=== PATIENT | female | born 1960 | race Caucasian/White ===

== ENCOUNTER 2022-07-21 05:09 | Observation (INO) ==
--- NOTE | 2022-06-29 15:58 | PAT Medication Instructions ---
Medication Instructions Date of Service June 29, 2022 Home Medications acetaminophen 500 mg tablet 1,000 mg PO Q6H PRN Pain aspirin 81 mg capsule 81 mg PO QAM atorvastatin 20 mg tablet 20 mg PO HS cholecalciferol (vitamin D3) 25 mcg (1,000 unit) tablet (Vitamin D3) 1,000 unit PO QAM duloxetine 30 mg capsule,delayed release (Cymbalta) 30 mg PO QAM levothyroxine 100 mcg tablet 100 mcg PO QAM metformin 1,000 mg tablet 1,000 mg PO BID metoprolol succinate 25 mg tablet,extended release 24 hr 12.5 mg PO QAM semaglutide 0.25 mg or 0.5 mg (2 mg/3 mL) subcutaneous pen injector (Ozempic) 0.5 mg subcut WK valsartan 40 mg tablet 40 mg PO BID Continue as directed semaglutide 0.25 mg or 0.5 mg (2 mg/3 mL) subcutaneous pen injector (Ozempic) 0.5 mg subcut WK DO NOT take the morning of surgery cholecalciferol (vitamin D3) 25 mcg (1,000 unit) tablet (Vitamin D3) 1,000 unit PO QAM metformin 1,000 mg tablet 1,000 mg PO BID valsartan 40 mg tablet 40 mg PO BID Take morning of surgery With a small sip of water, OTHERWISE NOTHING TO EAT OR DRINK AFTER MIDNIGHT: acetaminophen 500 mg tablet 1,000 mg PO Q6H PRN Pain (if needed) aspirin 81 mg capsule 81 mg PO QAM (continue as normal unless told otherwise by surgeon) duloxetine 30 mg capsule,delayed release (Cymbalta) 30 mg PO QAM levothyroxine 100 mcg tablet 100 mcg PO QAM metoprolol succinate 25 mg tablet,extended release 24 hr 12.5 mg PO QAM Take evening before surgery acetaminophen 500 mg tablet 1,000 mg PO Q6H PRN Pain (if needed) atorvastatin 20 mg tablet 20 mg PO HS metformin 1,000 mg tablet 1,000 mg PO BID valsartan 40 mg tablet 40 mg PO BID Other Notes If you have any questions please call us at [phone] or [phone] or [phone] or [phone]
--- NOTE | 2022-07-05 12:34 | Anesthesiology Consultation ---
Date of Service July 05, 2022 Assessment & Plan (1) Encounter for pre-operative examination: - COVID screening: Per assessment on 07/05: No known COVID-19 positive contacts or current COVID-19 related symptoms. Travel screen negative. Patient vaccinated. At surgeon discretion if preop Covid testing being done. - Check BSG AM DOS - Outpatient joint assessment: Pt currently scheduled for inpatient pathway. If surgeon requests review for outpatient joint pathway, patient is acceptable candidate for outpatient joint program from anesthesia standpoint. Chart Review Chart Review: Acceptable Risk for Surgery and Patient seen in Pre Admission Testing Teaching & Discussion Pre-Anesthesia Teaching/Discussion Notes: Instructed NPO after midnight before surgery,except medications with 15 cc of water. Medication instructions provided according to the PAT guidelines. History Surgery Operation Date: 07/21/22 10:50 Proposed Procedures p Right Total Hip Arthroplasty - Jda Hinton MD Height/Weight Height: 5 ft 2 in Weight: 73.4 kg Allergies Allergy/AdvReac Type Severity Reaction Status Date / Time vancomycin Allergy Mild redness to Verified 06/29/22 12:48 face/neck, itchy Sulfa (Sulfonamide AdvReac Intermediate "makes me Verified 06/29/22 12:48 Antibiotics) hyper" Cephalosporins AdvReac Mild itchy Verified 06/29/22 12:48 lisinopril AdvReac Mild Cough Verified 06/29/22 12:48 Medications Home Medications Medication Instructions Recorded Confirmed Last Taken acetaminophen 500 mg tablet 1,000 mg PO Q6H PRN Pain 06/29/22 06/29/22 Unknown aspirin 81 mg capsule 81 mg PO QAM 06/29/22 06/29/22 Unknown atorvastatin 20 mg tablet 20 mg PO HS 06/29/22 06/29/22 Unknown cholecalciferol (vitamin D3) 25 1,000 unit PO QAM 06/29/22 06/29/22 Unknown mcg (1,000 unit) tablet (Vitamin D3) duloxetine 30 mg capsule,delayed 30 mg PO QAM 06/29/22 06/29/22 Unknown release (Cymbalta) levothyroxine 100 mcg tablet 100 mcg PO QAM 06/29/22 06/29/22 Unknown metformin 1,000 mg tablet 1,000 mg PO BID 06/29/22 06/29/22 Unknown metoprolol succinate 25 mg 12.5 mg PO QAM 06/29/22 06/29/22 Unknown tablet,extended release 24 hr semaglutide 0.25 mg or 0.5 mg (2 0.5 mg subcut WK 06/29/22 06/29/22 Unknown mg/3 mL) subcutaneous pen injector ([id number]) valsartan 40 mg tablet 40 mg PO BID 06/29/22 06/29/22 Unknown Wheeled Walker #1 ea 07/05/22 07/05/22 Unknown Past Medical History Medical History Bilateral hip joint arthritis Diabetes mellitus, type 2 Fatty liver Fibromyalgia History of prolonged Q-T interval on ECG Noted on remote EKG/not noted on more recent EKGs. S/P unremarkable 14 day ca rdiac monitor 04/2022. No current/recent issues. Hyperlipidemia Hypertension Hypothyroidism Osteoarthritis Exercise / Class Metabolic Activity II 4-5 Yardwork/Stairs/Walk up hill (one FS (no CP, no SOB)) Past Family History Family History Other No family history of adverse response to anesthesia Past Surgical History Surgical History History of bilateral breast reduction surgery History of bilateral cataract extraction History of bilateral tubal ligation History of carpal tunnel surgery of right wrist History of colonoscopy History of decompression of ulnar nerve right History of dilatation and curettage History of endometrial ablation History of toe surgery bone spur removal off right great toe History of wisdom tooth extraction Past Anesthesia History No Hx of Anesthesia Complications and No Family Hx of Anesthesia Complications History of PONV No Hx of PONV and No Hx of Motion Sickness Social History Smoking Status: Never smoker Do You Dip or Chew Tobacco: No Hx Alcohol Use: No Hx Substance Use: No substance use type: does not use Review of Systems Patient denies chest pain, shortness of breath, dyspnea on exertion, fever, chills, cough, wheezing, palpitations. Physical Exam Vital Signs VITALS BP 111/67 P 96 TEMP 98.9 SP02 95%RA RESP 16 PHYSICAL Full cervical extension range of motion. Full TMJ range of motion. TMD 3.5 finger breaths Mallampati Score 3 Dentition: several missing (molars) Lungs: clear throughout to auscultation Cardiac: regular rate and rhythm, no murmurs noted Spine: normal Carotid arteries: negative bruit Extremities: no edema Lab Results Anesthesia Preop Results Results Anesthesia Widget: WBC 7.79 K/ul (4.8-10.8) 07/05/22 Hgb 14.6 g/dl (12.0-16.0) 07/05/22 Hct 42.2 % (37.0-47.0) 07/05/22 Plt 185 K/uL (130-400) 07/05/22 PT 11.5 Seconds (9.0-12.0) 07/05/22 PTT 27.8 Seconds (21.0-31.0) 07/05/22 INR 1.1 (0.9-1.1) 07/05/22 Blood Type O Positive 07/05/22 Antibody Screen NEGATIVE 07/05/22 Testing Laboratory Results 06/02/22 SODIUM 140 POTASSIUM 4.1 CHLORIDE 100 CO2 28 BUN 9 CREATININE 0.5 GLUCOSE 119 HGBA1C 7.0% TSH 1.39 Electrocardiogram Date: 07/05/22 NSR at 87bpm. Chest X-Ray Date: 07/05/22 Findings: + NAD Other Testing 14 day event host (04/21/22) CONCLUSIONS: 1. Patient had a min HR of 56 bpm, max HR of 151 bpm, and avg HR of 89 bpm. Predominant underlying rhythm was Sinus Rhythm. 2. Isolated SVEs were rare (<1.0%), and no SVE Couplets or SVE Triplets were present. Isolated VEs were rare (<1.0%), VE Couplets were rare (<1.0%), and no VE Triplets were present. COVID-19 Risk Screen Screening Information COVID-19 Screen Date: 07/05/22 Exposure 21 Days Family/Household +COVID Last 21 Days: No Exposure 10 Days Any COVID Exposure Last 10 Days: No Symptoms Last 10 Days Experienced COVID Sx Last 10 Days: No + COVID 0-90 Days COVID + in Last 0-90 Days: No
[2022-07-21] MEDS ORDERED: METOCLOPRAMIDE HCL 10 MG TABLET PO SCH (06:00)
[2022-07-21] MEDS ORDERED: CeleBREX 200 MG CAP PO SCH (06:00)
[2022-07-21] MEDS ORDERED: LR 60ML/HR IV SCH (06:00)
[2022-07-21] MEDS ORDERED: TRANEXAMIC ACID 1,000 MG **IV Pre-op IV SCH (06:00)
[2022-07-21] MEDS ORDERED: LR 500ML BOLUS, THEN 15ML/HR IV SCH (06:00)
[2022-07-21] MEDS ORDERED: ACETAMINOPHEN 500 MG TAB PO SCH (06:00)
[2022-07-21] MEDS ORDERED: ceFAZolin 2000MG 2,000 MG/15 ML SYR IV SCH (06:00)
[2022-07-21] MEDS ORDERED: FAMOTIDINE 20 MG TAB PO SCH (06:00)
[2022-07-21] MEDS ORDERED: Scopolamine 1 MG TDSY TD SCH (06:00)
[2022-07-21] MEDS ORDERED: BUPIVACAINE 0.5 % 5 MG/1 ML PF 10ML VIAL ONE (06:26)
[2022-07-21] MEDS ORDERED: ONDANSETRON INJ 2 MG/ML 2 ML VIAL IV PRN (06:41)
[2022-07-21] MEDS ORDERED: ATROPINE SULFATE 0.1 MG/ML 10ML SYR IV PRN (06:41)
[2022-07-21] MEDS ORDERED: ePHEDrine sulfate 50 MG/ML AMP IV PRN ×2 (06:41→07:57)
[2022-07-21] MEDS ORDERED: fentaNYL citrate PF 100 MCG/2 ML VIAL IV PRN (06:41)
[2022-07-21] MEDS ORDERED: MIDAZOLAM HCL 1 MG/ML 2ML VIAL ONE ×2 (06:42→07:02)
[2022-07-21] MEDS ORDERED: fentaNYL citrate PF 100 MCG/2 ML VIAL ONE (06:43)
[2022-07-21] MEDS ORDERED: MoRPHine SULFATE PF 1 MG/ML 10 ML AMP/VIAL ONE (06:44)
--- NOTE | 2022-07-21 06:49 | History & Physical Bridge Note ---
Date of Service July 21, 2022 History & Physical Bridge Note I have examined the patient, reviewed the History & Physical and in the interval since the performance of the History & Physical I have noted the following changes of clinical significance: no changes noted
[2022-07-21] MEDS ORDERED: ceFAZolin 2,000 MG/15 ML IV PUSH IV ONE (06:50)
[2022-07-21] MEDS ORDERED: PROPOFOL IV EMULSION 10 MG/ML 20 ML VIAL IV ONE (06:51)
[2022-07-21] MEDS ORDERED: BUPIVACAINE/EPINEPHRINE 0.5% MPF 1:200,000 30 ML VIAL ONE (06:55)
[2022-07-21] MEDS ORDERED: Nursing to Pharmacy Communication SCH (07:00)
[2022-07-21] MEDS ORDERED: ONDANSETRON INJ 2 MG/ML 2 ML VIAL ONE (07:30)
[2022-07-21] MEDS ORDERED: diphenhydrAMINE 50 MG/ML VIAL ONE (07:30)
[2022-07-21] MEDS ORDERED: ePHEDrine sulfate 50 MG/ML SYR ONE (07:30)
[2022-07-21] MEDS ORDERED: PHENYLEPHRINE 100MCG/ML 5ML SYR ONE (07:38)
[2022-07-21] MEDS ORDERED: diphenhydrAMINE 50 MG/ML VIAL IV PRN (07:57)
[2022-07-21] MEDS ORDERED: NALOXONE HCL 0.4 MG/1 ML VIAL/CARP IV PRN ×2 (07:57→09:57)
[2022-07-21] MEDS ORDERED: MoRPHine SULFATE PF 1 MG/ML 10 ML AMP/VIAL INT SPINAL ONE (07:57)
[2022-07-21] MEDS ORDERED: LACTATED RINGER'S 500 ML IV PRN (07:57)
[2022-07-21] MEDS ORDERED: NALOXONE HCL 1 MG in SODIUM CHLORIDE 0.9% 1000ML 1,000 ML IV PRN (07:57)
[2022-07-21] MEDS ORDERED: NALBUPHINE HCL INJ 10 MG/ML AMP IV PRN (07:57)
[2022-07-21] MEDS ORDERED: NALOXONE HCL 0.08 MG in SYRINGE 1.8 ML IV PRN (07:57)
[2022-07-21] MEDS ORDERED: NO NARCOTICS OR SEDATIVES SCH (08:00)
[2022-07-21] MEDS ORDERED: SODIUM CHLORIDE 0.9% 1000ML 1,000 ML IV SCH (08:00)
--- NOTE | 2022-07-21 08:42 | Operative Report ---
PG Post Operative Report Pre & Post Diagnosis Operation Date: 07/21/22 07:00 Pre-Op Diagnosis: Right Hip arthritis Post-Op Diagnosis: Right Hip arthritis I identified the patient and participated in the time-out.: Yes Procedure Operation Date: 07/21/22 07:00 Actual Procedures p Right Total Hip Arthroplasty(Right) - Jad Hinton MD Surgeon Jad Hinton MD Public Health Engineer Favian Kuhn PA-C Estimated Blood Loss 200 Findings Consistent with Post-Op Diagnosis Operative findings advanced right hip arthritis. She did have a significant joint effusion. She had a grade 4 [id number] disease localized. There are some areas where there is still pretty good cartilage coverage. Fairly small osteophyte formation. She did have a moderate total hip joint effusion. Specimens Right femoral head sent for pathology Drains None Anesthesia Type Spinal MAC Complications none Disposition Accompanied Patient To Recovery: No Indications Patient 62-year-old female with a several history increasing right hip pain discomfort describes gotten worse over time patient failed conservative measures. X-rays show advanced hip arthritis. She elected to a surgical honey tment. Description of Procedure Operative implants consist of: 1 Biomet G7 size 50 mm acetabular shell. 2. 6.5 cancellous acetabular screws 135 mm length 1 to 25 mm in length. 3. Southwick hole limiter. 4. Highly cross-linked polyethylene liner with a 50 mm outer diameter 36 mm diameter. 5. DePuy Corail size 12 KLA femoral stem. 6. +5/36 mm ceramic articular ball. The patient was taken the operating, identified, placed on the operating table supine position vital contractors were properly padded. IV antibiotics tried by anesthesia team. A spinal anesthetic had been implemented holding area. Pardo catheter was placed in sterile fashion. Patient then placed in the left lateral decubitus position. A Stulberg hip positioner was used for positioning. The right hip and leg were then prepped and draped in usual sterile fashion. A posterior approach of the right hip was then performed through a curvilinear incision centered over the greater trochanter. Sharp dissection Through subcutaneous tissue down to the IT band gluteal fascia the IT band gluteal fascia incised longitudinally in line with skin incision. The underlying greater bursa was excised. The piriformis and external rotators were tagged and taken off the posterior aspect hip joint capsule. Great care was taken throughout the procedure protect the sciatic nerve at all times. A posterior capsulotomy was then performed leaving a large flap for later repair. The hip was internally rotated and dislocated. A femoral neck osteotomy cut was made with a Final Cut about 10 mm above the lesser trochanter. Femoral head was removed and sent for pathology. The femur was retracted anteriorly. Attention drawn the acetabulum. The acetabulum was excised with the pulmonary fat was excised. Sequential reaming the acetabular was then performed again with a size 43 and progressing up to 49. I did ream some with a 50 reamer and then placed a 50 mm G7 acetabular shell in about 40 degrees lateral opening and 20 degrees of anteversion. It was fixed with two 6.5 cancellous acetabular screws. A trial liner was placed. Attention drawn the femur. The proximal femur was entered with a [employer] cutter followed by canal finder. Broached beginning size 8 progressed up to 12. Got excellent fit at 12. We then trialed the hip and the +5 articular ball provide full stability in full stanchion and external Tatian and flexion to 9 degrees internal Tatian over [address] I like to place his implants. Leg length seemed equal and soft tissue tension seemed appropriate. All trial implants were removed. Southwick hole limiter was placed but highly cross- linked polyethylene liner was placed. A size 12 KLA femoral stem was impacted in position. +5/36 mm ceramic articular ball was placed. Hip was located once again found to be stable. Attention drawn to closing. Nupathe wounds irrigated cosigns pulsatile solution. I did inject locally with 60 cc of half percent Ma rcaine with epinephrine. Posterior capsule and external rotators were then repaired through drill holes in the posterior trochanter with #2 Tycron suture for the IT band gluteal fascia then closed in 1 PDS suture in a running fashion the subcutaneous tissue then closed in 2 layers the deep layer #1 Vicryl suture in the subcutaneous tissues with 2-0 Dexon suture in a buried interrupted fashion. Skin was closed skin zaynab. Legs then cleaned and dried and sterile dressed with Xeroform, 4 fours, sterile ABD pads, foam tape was applied. The patient the transferred off the OR tubercle to the transport bed and taken to the recovery room in stable condition. Patient tolerated procedure well and no complications. Avinash Kuhn, my PA C, was present for the entire procedure. His assistance was required for proper patient positioning, prepping and draping, surgical exposure, retraction, perform the technical details the operation, placing the implants, closure of the wound and incision site and placement of sterile bandage. I attest to the content of the Intraoperative Record and any orders documented therein. Any exceptions are noted below.
--- NOTE | 2022-07-21 09:29 | Anesthesiology Progress Note ---
Date of Service July 21, 2022 Anesthesia Post Procedure Vital Signs Vital Signs: Temp Pulse Pulse Resp BP Pulse Ox O2 Del Method 07/21/22 09:20 90 15 110/60 93 Room Air 07/21/22 09:10 85 15 108/57 L 95 Room Air 07/21/22 09:00 99 H 16 96/58 L 96 Room Air 07/21/22 08:50 96 H 16 107/60 96 Room Air 07/21/22 08:40 97.5 F L 96 H 20 113/58 L 96 Room Air 07/21/22 08:31 97.5 F L 100 H 20 137/74 98 Oxymask 07/21/22 05:31 97.7 F 89 20 149/91 H 98 Room Air O2 Flow Rate 07/21/22 09:20 07/21/22 09:10 07/21/22 09:00 07/21/22 08:50 07/21/22 08:40 07/21/22 08:31 6 07/21/22 05:31 Pain Intensity Right Hip: Pain Intensity: 0 Transfer of Care Handoff Completed per policy Notes Mental Status: alert / awake / arousable and participated in evaluation Patient Amnestic to Procedure: Yes Nausea / Vomiting: adequately controlled Pain: adequately controlled Airway Patency, RR, SpO2: stable & adequate BP & HR: stable & adequate Hydration State: stable & adequate Neuraxial Anesthesia: was administered and sensory block is resolving Anesthetic Complications: no major complications apparent and Pt Satisfied with anesthetic care
--- NOTE | 2022-07-21 09:32 | XRay Report ---
XR hip 1V RT w pelvis CLINICAL HISTORY: IN PACU - Post Surgical TECHNIQUE: 2 views of the right hip and single frontal view of the pelvis were obtained. Comparison: Comparison is made to right hip radiograph 07/05/2022 FINDINGS: Patient is status post total hip arthroplasty with expected postsurgical changes including soft tissu e swelling and subcutaneous emphysema. IMPRESSION: Expected postoperative appearance status post placement of total hip arthroplasty. ACT 112: Negative or not required by law. Electronically signed by: Rober Beaulieu M.D. 07/21/2022 9:31 AM
[2022-07-21] MEDS ORDERED: GLUCOSE 40% GEL 15 GM TUBE PO PRN (09:57)
[2022-07-21] MEDS ORDERED: diphenhydrAMINE Capsule 25 MG CAP PO PRN (09:57)
[2022-07-21] MEDS ORDERED: PHARMACY GLYCEMIC MGMT CONSULT PRN (09:57)
[2022-07-21] MEDS ORDERED: MAGNESIUM HYDROXIDE SUSP 30 ML UDC PO PRN (09:57)
[2022-07-21] MEDS ORDERED: GLUCOSE 10 TAB/TUBE PO PRN (09:57)
[2022-07-21] MEDS ORDERED: HYDROmorphone INJ 0.5 MG/0.5 ML SYR IV PRN (09:57)
[2022-07-21] MEDS ORDERED: ALUMINUM/MAGNESIUM SUSP 30 ML UDC PO PRN (09:57)
[2022-07-21] MEDS ORDERED: NON-FORMULARY MEDICATION (Semaglutide [Ozempic] 0.25 mg or 0.5 mg (2 mg/3 mL) Pen Injector SQ SCH (09:57)
[2022-07-21] MEDS ORDERED: CARBOHYDRATES FOR HYPOGLYCEMIA PO PRN (09:57)
[2022-07-21] MEDS ORDERED: NON-FORMULARY MEDICATION (Amino Acids [Amino Acid] Capsule) PO SCH (09:57)
[2022-07-21] MEDS ORDERED: GLUCAGON FOR INJ 1 MG VIAL SQ PRN (09:57)
[2022-07-21] MEDS ORDERED: DEXTROSE 50% 50 ML SYRINGE IV PRN (09:57)
[2022-07-21] MEDS ORDERED: bisacodyL 10 MG SUPP PR PRN (09:57)
[2022-07-21] MEDS ORDERED: METOCLOPRAMIDE HCL INJ 5 MG/ML 2 ML VIAL IV PRN (09:57)
[2022-07-21] MEDS: ALLERGY Noted to ORDERED Medication SCH ×2 (10:00→10:14)
[2022-07-21] MEDS: DULoxetine HCL 30 MG CAP PO SCH (11:04)
[2022-07-21] MEDS: ASPIRIN 81 MG ECTAB PO SCH ×2 (11:04→21:31)
[2022-07-21] MEDS: LEVOTHYROXINE SODIUM 100 MCG TABLET PO SCH (11:04)
[2022-07-21] MEDS: METOPROLOL SUCC 25MG EXT REL TAB PO SCH (11:05)
[2022-07-21] MEDS: DOCUSATE SODIUM/SENNA 50/8.6MG TAB PO SCH (11:06)
[2022-07-21] MEDS: VALSARTAN 80 MG TAB PO SCH ×2 (11:06→21:31)
[2022-07-21] MEDS: SODIUM CHLORIDE 0.9% 1000ML 1,000 ML IV SCH ×2 (11:08→19:57)
[2022-07-21] MEDS: INSULIN ASPART PER UNIT CHARGE SC SCH ×3 (12:09→21:39)
[2022-07-21] MEDS: KETOROLAC 30 MG/ML VIAL IV SCH ×3 (12:38→23:06)
[2022-07-21] MEDS: DOCUSATE SODIUM 100 MG CAP PO SCH ×2 (12:38→21:31)
[2022-07-21] MEDS: MULTIVITAMIN TAB PO SCH (12:38)
--- NOTE | 2022-07-21 14:00 | Progress Notes ---
DATE OF SERVICE: 07/21/2022. SUBJECTIVE: A 62-year-old female, postoperative from a right uncemented hip replacement. She is doi ng well. Just feels tired and wiped out. No chest pain or shortness of breath. Fairly minimal hip pain. OBJECTIVE: VITAL SIGNS: Temperature 36.4. Vital signs are stable. GENERAL: Shows a pleasant middle-aged female. She is sitting up in bed and looks pretty comfortable this afternoon. LUNGS: Clear to auscultation. HEART: Has a regular rate and rhythm. ABDOMEN: Soft, nontender, nondistended. EXTREMITIES: Grossly neurovascularly intact except as follows. Examination of the right hip reveals the dressing to be clean, dry and intact. Leg lengths were equa l. She can dorsiflex and plantarflex her foot appropriately. She is neurologically intact. X-RAYS: X-rays of the right hip from recovery room are reviewed. She has right uncemented hip repla cement. Components look to be in good position. No signs of problems. ASSESSMENT: A 62-year-old female, postoperative from right hip replacement, doing well. Pain is con trolled. She is neurologically intact. PLAN: 1. DVT prophylaxis includes thigh-high TEDs, SCDs, and aspirin twice a day. 2. PT/OT, weightbear as tolerated. Right total hip protocol. 3. Pain control, doing okay with current pain regimen. 4. Disposition: Plan is to discharge her to home with some home health once adequately recovered. We will see how she does in therapy tomorrow. Job ID: [id number]
[2022-07-21] MEDS: ceFAZolin 1000MG 1,000 MG/7.5 ML SYR IV SCH ×2 (14:35→23:05)
[2022-07-21] MEDS: ACETAMINOPHEN 500 MG TAB PO SCH ×2 (14:36→21:32)
[2022-07-21] MEDS ORDERED: TRANEXAMIC ACID / 0.7% NACL 1,000 MG/100 ML BAG IV SCH (15:00)
--- NOTE | 2022-07-21 15:05 | Pharmacy Report ---
Pharmacy Glycemic Short Note 2 - Date of Service July 21, 2022 - Glycemic Short BSG Results (Last 24 hours): 07/21/22 07/21/22 07/21/22 05:26 08:35 11:59 POC Glucose 145 H 141 H 127 H OUTPATIENT ANTIDIABETIC REGIMEN: * Metformin 1gm PO BID * Ozempic 0.5mg SQ weekly on Sundays * HbA1c: pending w/ am labs ASSESSMENT: * Ms Francisco is a 62yo diabetic F, POD 0 s/p R total hip with Dr Jamaal mcgrath mo rning. * It does not appear as though pt received any intraoperative steroids. * Will utilize Novolog for correction/prandial coverage during admission. PLAN FOR INPATIENT GLYCEMIC CONTROL: * Hold outpatient oral diabetes medications * Basal insulin * none at this time * Bolus insulin * NovoLog per scale ACHS or Q6hrs while NPO * Goal Range: Low 110 mg/dL - High 140 mg/dL * Correction Factor: 35 mg/dL/unit * Nutritional / Prandial insulin per carb ratio of 1 unit per 12 grams CHO consumed
[2022-07-21] MEDS: Scopolamine CHECK PATCH PLACEMENT SCH ×2 (15:29→23:05)
[2022-07-21] MEDS: ASCORBIC ACID 500 MG TAB PO SCH (17:38)
[2022-07-21] MEDS ORDERED: SENNA 8.6 MG TAB PO SCH (21:00)
[2022-07-21] MEDS ORDERED: ATORVASTATIN 20 MG TAB PO SCH (21:00)
[2022-07-22] MEDS ORDERED: DC INTRASPINAL MORPHINE SCH (01:57)
[2022-07-22] MEDS ORDERED: traMADol HCL 50 MG TABLET PO PRN (01:58)
[2022-07-22] MEDS ORDERED: ONDANSETRON INJ 2 MG/ML 2 ML VIAL IV PRN (01:58)
[2022-07-22] MEDS ORDERED: HYDROmorphone INJ 0.5 MG/0.5 ML SYR IV PRN (01:58)
[2022-07-22] MEDS: ACETAMINOPHEN 500 MG TAB PO SCH (06:01)
[2022-07-22] MEDS: KETOROLAC 30 MG/ML VIAL IV SCH (06:01)
[2022-07-22] MEDS: LEVOTHYROXINE SODIUM 100 MCG TABLET PO SCH (06:01)
[2022-07-22 07:31] LABS: BUN Creatinine Ratio 21.4 (10-20); Calcium 8.8 mg/dl (8.5-10.1); Creatinine Clr Calc Pharmacy 96.4 ml/min; Est GFR (Non-African American) 99.2 ml/min; Potassium 4.5 mmol/L (3.5-5.1)
--- NOTE | 2022-07-22 07:50 | Progress Notes ---
DATE OF SERVICE: 07/22/2022 SUBJECTIVE: A 62-year-old female postoperative day 1 from right hip replacement. She is doing prett y well. She had a reasonable night. She has been up and walking some. No chest pain or shortness o f breath. OBJECTIVE: VITAL SIGNS: Temperature is 37.1. Vital signs are stable. PHYSICAL EXAMINATION: GENERAL: Physical exam shows a pleasant middle-aged female. She is sitting up in bed and looks reas onably comfortable. MUSCULOSKELETAL: Examination of the right hip reveals the leg lengths to be equal. Dressing is nay n, dry, and intact. She can dorsiflex and plantarflex her foot appropriately. She is neurologically intact. LABORATORY DATA: Labs are pending. ASSESSMENT: A 62-year-old female postoperative day 1 from right hip replacement, doing pretty well. Pain seems to be controlled. Hip is located. She is neurologically intact. PLAN: 1. DVT prophylaxis to include thigh-high TEDs, SCDs, and aspirin twice a day. 2. PT, OT, and weightbear as tolerated. Right total hip protocol. 3. Pain control, doing okay with current pain regimen. 4. Disposition: Plan to discharge her home with some home health if she does okay in therapy. Job ID: [id number]
[2022-07-22 08:01] LABS: Basophils # (auto) 0.02 K/uL (0-0.2); Basophils % (auto) 0.3 %; Eosinophils # (auto) 0.14 K/uL (0-0.50); Eosinophils % (auto) 2.3 %; Hematocrit (blood only) 30.5 % (37.0-47.0); Hemoglobin 10.6 g/dl (12.0-16.0); Immature Granulocytes # (auto) 0.09 K/uL (0.01-0.20); Immature Granulocytes % (auto) 1.5 %; Lymphocytes # (auto) 1.21 K/uL (1.2-3.4); Lymphocytes % (auto) 20.1 %; Mean Corpuscular Hemoglobin 31.1 pg (25.0-34.0); Mean Corpuscular Hgb Conc 34.8 g/dL (32.0-36.0); Mean Corpuscular Volume 89.4 fL (80.0-100.0); Mean Platelet Volume 9.4 fL (9.4-12.4); Monocytes # (auto) 0.62 K/uL (0.11-0.59); Monocytes % (auto) 10.3 %; Neutrophils # (auto) 3.93 K/uL (1.40-6.50); Neutrophils % (auto) 65.5 %; Platelet Count 112 K/uL (130-400); RDW Coefficient of Variation 11.8 % (11.5-14.5); RDW Standard Deviation 38.4 fL (36.4-46.3); Red Blood Count 3.41 M/uL (4.20-5.40); White Blood Count 6.01 K/ul (4.8-10.8)
[2022-07-22 08:16] LABS: Estimated Average Glucose 140 mg/dl; Hemoglobin A1C 6.5 % (4.5-5.6)
[2022-07-22] MEDS: DULoxetine HCL 30 MG CAP PO SCH (08:33)
[2022-07-22] MEDS: METOPROLOL SUCC 25MG EXT REL TAB PO SCH (08:33)
[2022-07-22] MEDS: DOCUSATE SODIUM/SENNA 50/8.6MG TAB PO SCH (08:33)
[2022-07-22] MEDS: VALSARTAN 80 MG TAB PO SCH (08:34)
[2022-07-22] MEDS: ASCORBIC ACID 500 MG TAB PO SCH (08:35)
[2022-07-22] MEDS: DOCUSATE SODIUM 100 MG CAP PO SCH (08:35)
[2022-07-22] MEDS: ASPIRIN 81 MG ECTAB PO SCH (08:35)
[2022-07-22] MEDS: MULTIVITAMIN TAB PO SCH (08:36)
[2022-07-22] MEDS: Scopolamine CHECK PATCH PLACEMENT SCH (08:36)
[2022-07-22] MEDS: INSULIN ASPART PER UNIT CHARGE SC SCH (08:37)
[2022-07-22] MEDS ORDERED: CHOLECALCIFEROL 1,000 UNITS 25 MCG TAB PO SCH (09:00)
--- NOTE | 2022-07-26 08:34 | Discharge Summary ---
Date of Service July 26, 2022 Admission HPI (Per Admitting) Chief Complaint: Bilateral hip pain and discomfort right side greater than the left. History of Present Illness:The patient is a 62-year-old female who presents now for surgical treatment of her hips. She has had a several history of increasing right hip pain and discomfort that has gradually gotten worse over time. The right side has been worse than the left. She describes groin pain, buttock pain, and thigh pain radiating down to her knee, but not much further. No numbness. She does have some intermittent back pain as well, but no radicular type symptoms. She is taking oral medicines which do not really help much as well. She limps more as the day goes on. She has difficulty putting her shoes and socks on. She would like to have her right hip replaced. Past Medical History: 1. Hypertension. 2. Elevated cholesterol. 3. Anxiety/depression. 4. Type 2 diabetes. 5. Arthritis. Past Surgical History: 1. Breast reduction. 2. Uterine ablation. 3. Nerve relocation. Allergies:Keflex and vancomycin. Current Medications: Levothyroxine, Valsartan, metformin, vitamin D3, baby aspirin, Ozempic, Cymbalta, and extra strength Tylenol. Family/Social History: A 62-year-old female. She is . Rare alcohol intake. Does not smoke. Family history is noncontributory. Review of Systems:Significant for diabetes. Denies any current chest pain or shortness of breath. No history of DVT or PE. No known bleeding problems. OBJECTIVE:Physical Exam:Gen: Physical examination shows a pleasant middle aged female. Looks to be in pretty good health. HEENT: Benign. Neck: Supple. No lymphadenopathy. Lungs: Clear to auscultation. Heart: Regular rate and rhythm. Abdomen: Soft, nontender, and nondistended. Extremities: Grossly neurovascularly intact except as follows: Examination of the both hips reveals the patient walks with kind of waddling kind of gait. She keeps her hip kind of stiff and swings her pelvis. Examination of the right hip reveals fairly equal leg lengths. She does have pain and stiffness with hip internal rotation to about neutral. Negative straight leg raise. No knee effusion. She is neurologically intact. Examination of left hip reveals leg lengths to be equal. Much less pain and stiffness with rotation. Internally rotate to 10 degrees with some mild pain. Negative straight leg raise. She is neurologically intact. Principal Diagnosis Same as "Discharge Diagnosis" noted below under Discharge Instructions. Discharge Data Procedures Performed Operation Date: 07/21/22 07:00 Actual Procedures p Right Total Hip Arthroplasty(Right) - Jad Hinton MD Hospital Course (1) S/P total right hip arthroplasty: Admitted on 07/21 after elective R AMANDA. She did well after surgery and had no post operative complications. Discharged home on POD 1. PG Care Time/CCT Total # of Minutes Spent Total Time Spent with Patient: Total time spent is greater than 50% in coordination of care (as documented) at patient's floor/unit and/or counseling patient: Discharge Plan Discharge Items Patient Disposition: Home - Self-Care Reason For Visit: Right Hip DJD Discharge Diagnosis: Right Hip Replacement Activity: Per Instructions section Activity Comment: Follow/Obey hip precautions at all times. Weightbearing: Full weightbearing Weightbearing Comment: Weightbear as tolerated obeying hip precautions at all times. Non-emergency contact: Surgeon Call non-emergency contact if: you have any medication questions Follow-up/Referrals: Azul Contreras PA-C [Primary Care Provider] - Diet: Carb Consistent or DM2 Addtl Attending Provider Instructions: ACTIVITY RECOMMENDATIONS: Physical Therapy: * Aggressive physical therapy is not usually needed. You will learn to take care of yourself safely and walk. * Follow the "Hip Precautions Instructions." * In some cases, the social welfare research worker at the hospital will arrange to have a therapist come to your house for the first couple of weeks to help you learn these skills. * You need to practice on your own or with the help of a family member as needed. * When you learn these skills, most of the therapy can be done on your own. Home Exercise: * You were shown a series of exercises in the hospital. Do these exercises three to four times each day including the exercises you were shown in physical therapy. Walking: * Get up and walk several times each day. For the first four weeks, try not to stand or walk for more than one hour at a time. If you do stand or walk for more than one hour, you will not hurt anything, but your leg will likely swell. * As you feel comfortable, you may change from the walker or crutches to a cane and then to independent walking. MEDICATIONS: New Medicine: * You will likely be taking one or more of these medicines: 1. Tramadol - Take, as directed, when you need it, every six hours to control your pain. 2. Aspirin - Thins your blood to lessen the chance of forming a blood clot. * The most common side effects of pain medicine and iron are nausea and constipation. If nausea or constipation is too much of a problem or if you have any questions about your new medicines or doses, call [facility] at . We will try to help you manage these issues. "VERY IMPORTANT TO READ AND REVIEW" Pain: * The immediate post-operative period after hip replacement surgery is often quite painful. * You are given a prescription for pain medicine. You should take it, as directed, when you need it, especially before physical therapy and before going to bed. Pain that interferes with sleep is very common and can last several months. * You will likely need pain medicine for the first two to four weeks. It will not stop all of the pain. The pain will lessen and as you feel better, you may change to milder pain medicine such as Tylenol. * The most common side effects of pain medicine are nausea and constipation, so don't take more than you need. SPECIAL CARE INSTRUCTIONS: TEDs/Elastic Stockings: * The white elastic stockings help limit swelling and prevent blood clots from forming in your legs. The more you wear them, the more they work. * Wear them for six weeks. Incision Site Care: * Remove dressing postoperative day 2 and then shower. Keep direct shower pressure off the incision site. * After showering, cover maricruz with dry gauze and change daily or more frequently if the dressing is getting saturated with drainage. * May completely stop using bandage if wound is dry and no drainage * Maricruz are removed between 2 and 3 weeks post-op. If your follow-up appointment is made before 2 weeks, please have your appointment re- scheduled. It is too early to remove the maricruz. Prevention of Infection: * Take antibiotics one hour before any dental cleaning, dental work, urological procedure, gastrointestinal procedure or any invasive surgery in order to prevent your new joint from getting infected. * You may get the antibiotics from the doctor performing the procedure or you may call our office at before and we will call in a prescription to the pharmacy of your choice. Things to Watch For: * Drainage from the incision site that occurs more than one week after your surgery. * Severely increased leg pain or swelling. * Increased redness at the incision site. * Fever above 102 degrees Fahrenheit. * Unusual chest pain or shortness of breath. * Unusual pain or burning with urination. Call [facility] at with any of the above problems or if you have any questions about your medicines or recovery. FOLLOW UP VISIT: Make an appointment to see your doctor for approximately two weeks after surgery for a progress check and staple removal by calling the office at . Pending Studies at Discharge: No Stand-Alone Forms: My [facility] [employer], Smoking Cessation Medications and DC Order Prescriptions: Continued tramadol 50 mg tablet 50 - 100 mg PO Q6H PRN (Reason: pain) Qty: 40 0RF Rx Instructions: Take as needed for Pain. ondansetron HCl 4 mg tablet 4 mg PO Q6 PRN (Reason: nausea) Qty: 20 1RF ketorolac 10 mg tablet 10 mg PO Q6 5 Days Qty: 20 0RF Rx Instructions: Take 4 times per day with food for 5 days to decrease pain and swelling. acetaminophen 500 mg capsule 1,000 mg PO TID 30 Days Qty: 180 0RF Rx Instructions: Take 3 times per day to lessen pain. aspirin [Stewart Low Dose Aspirin] 81 mg tablet,delayed release (DR/EC) 81 mg PO BID 45 Days Qty: 90 0RF Rx Instructions: Take to prevent blood clots. sennosides-docusate sodium [Senokot-S] 8.6-50 mg tablet 1 tab-cap PO DAILY Qty: 14 0RF Rx Instructions: Take daily to prevent constipation cefadroxil 500 mg capsule 500 mg PO BID 7 Days Qty: 14 0RF Rx Instructions: Take 1 cap twice a day to prevent infection (DME) Wheeled Walker Misc See Rx Instructions .MEDSUPPLY Qty: 1 0RF Rx Instructions: As directed atorvastatin 20 mg Tablet 20 mg PO HS levothyroxine 100 mcg Tablet 100 mcg PO QAM metformin 1,000 mg Tablet 1,000 mg PO BID metoprolol succinate 25 mg Tablet Extended Release 24 Hr 12.5 mg PO QAM valsartan 40 mg Tablet 40 mg PO BID duloxetine [Cymbalta] 30 mg Capsule,Delayed Release(Dr/Ec) 30 mg PO QAM cholecalciferol (vitamin D3) [Vitamin D3] 25 mcg (1,000 unit) Tablet 1,000 unit PO QAM Ozempic 0.25 mg or 0.5 mg (2 mg/3 mL) Pen Injector 0.5 mg SUBCUT WK Patient Comments: takes on sundays Amino Acid Capsule 1 cap PO DAILY Discontinued aspirin 81 mg Capsule 81 mg PO QAM acetaminophen 500 mg Tablet 1,000 mg PO Q6H PRN (Reason: Pain) Discharge Orders: Discharge Order (Routine); Ordered 07/22/22 Ordered By: Jad Bowie/Other Patient Handouts: How Your Hip Works, Hip Precautions, Hip Replace Resuming Activity, Hip Replace Home Recovery Admission Data Admit Date/Time: 07/21/22 08:33 Attending Provider: Jad Hinton Admit Provider: Jad Hinton Primary Care Provider: Azul Contreras Other Interventions: Discharge Summary Assessment (RN) Last Done: 07/22/22 10:49
== END 2022-07-22 11:25 | disposition home or self-care (01) ==
LOC: ASU 05:09 → 3E 05:09

== ENCOUNTER 2024-03-16 06:17 | Observation (INO) ==
--- NOTE | 2024-02-07 15:22 | PAT Medication Instructions ---
Medication Instructions Date of Service February 07, 2024 Home Medications Medication Instructions Recorded Doug Cortés #1 ea 07/05/22 amoxicillin 500 mg tablet 2,000 mg (4 x 500 mg) PO ONCE #4 09/05/23 tabs atorvastatin 20 mg tablet 20 mg PO HS cholecalciferol (vitamin D3) 25 mcg (1,000 unit) tablet (Vitamin D3) 1,000 unit PO QAM duloxetine 30 mg capsule,delayed release (Cymbalta) 30 mg PO QAM levothyroxine 100 mcg tablet 100 mcg PO QAM metformin 1,000 mg tablet 1,000 mg PO BID metoprolol succinate 25 mg tablet,extended release 24 hr 25 mg PO QAM valsartan 40 mg tablet 40 mg PO BID amino acids (Amino Acid capsule) 1 cap PO DAILY amoxicillin 500 mg tablet 2,000 mg (4 x 500 mg) PO ONCE acetaminophen 500 mg capsule 1,000 mg PO Q6H PRN Pain aspirin 81 mg tablet,delayed release (Stewart Low Dose Aspirin) 81 mg PO QAM semaglutide 1 mg/dose (4 mg/3 mL) subcutaneous pen injector (Ozempic) 1 mg subcut WK Continue as directed amoxicillin 500 mg tablet 2,000 mg (4 x 500 mg) PO ONCE (prior to procedure) ASK your surgeon for instructions amino acids (Amino Acid capsule) 1 cap PO DAILY ASK your prescriber and surgeon aspirin 81 mg tablet,delayed release (Stewart Low Dose Aspirin) 81 mg PO QAM STOP 7 days prior to surgery semaglutide 1 mg/dose (4 mg/3 mL) subcutaneous pen injector (Ozempic) 1 mg subcut WK DO NOT take the morning of surgery cholecalciferol (vitamin D3) 25 mcg (1,000 unit) tablet (Vitamin D3) 1,000 unit PO QAM metformin 1,000 mg tablet 1,000 mg PO BID valsartan 40 mg tablet 40 mg PO BID Take morning of surgery With a small sip of water, OTHERWISE NOTHING TO EAT OR DRINK AFTER MIDNIGHT: duloxetine 30 mg capsule,delayed release (Cymbalta) 30 mg PO QAM levothyroxine 100 mcg tablet 100 mcg PO QAM metoprolol succinate 25 mg tablet,extended release 24 hr 25 mg PO QAM acetaminophen 500 mg capsule 1,000 mg PO Q6H PRN Pain (if needed) Take evening before surgery atorvastatin 20 mg tablet 20 mg PO HS metformin 1,000 mg tablet 1,000 mg PO BID valsartan 40 mg tablet 40 mg PO BID acetaminophen 500 mg capsule 1,000 mg PO Q6H PRN Pain (if needed) Other Notes If you have any questions please call us at [phone] or [phone] or [phone] or [phone]
--- NOTE | 2024-02-16 10:14 | Anesthesiology Consultation ---
Date of Service February 16, 2024 Assessment & Plan (1) Encounter for pre-operative examination: Chart Review Chart Review: Acceptable Risk for Surgery and Patient seen in Pre Admission Testing - Check BSG AM DOS - Ozempic instructions: Patient takes on (Sundays). Patient informed at PAT visit to stop 7 days prior to surgery- voiced understanding. Patient advised to check with prescriber to see if alternative diabetic management changes recommended while holding Ozempic- if so, patient to call back to PAT to update chart and discuss if any further preop medication instructions needed. Last dose of Ozempic scheduled 03/04/24- will be off Ozempic x 12 days by DOS 03/16/24 Pt currently scheduled as 23 hours observation. If surgeon decides to change patient to Same Day Joint, patient would be acceptable risk for AMANDA, pending patient is motivated, has good support and surgeon's office completes Same Day Joint Program preop requirements. Per PAT appt on 02/16/24, no recent illness/disease exposures, illness related symptoms, or recent illness/disease positive tests. Will leave to surgeon's discretion if preop Covid testing needed Right AMANDA 07/21/22= Done under SAB at L3-4 with 1 attempt Teaching & Discussion Pre-Anesthesia Teaching/Discussion Notes: Instructed NPO after midnight before surgery,except medications with 15 cc of water. Medication instructions provided according to the PAT guidelines. History Surgery Operation Date: 03/16/24 08:50 Proposed Procedures p Left Total Hip Arthroplasty - Jad Hinton MD Height/Weight Height: 5 ft 2 in Weight: 72.8 kg Allergies Allergy/AdvReac Type Severity Reaction Status Date / Time scopolamine Allergy Intermediate throat Verified 02/16/24 10:08 irritation vancomycin Allergy Intermediate redness to Verified 02/07/24 12:14 face/neck, itchy cephalexin [From Keflex] Allergy Mild Itching Verified 02/07/24 12:14 Cephalosporins Allergy Mild itchy Verified 02/07/24 12:14 Sulfa (Sulfonamide AdvReac Intermediate "makes me Verified 02/07/24 12:14 Antibiotics) hyper" lisinopril AdvReac Mild Cough Verified 02/07/24 12:14 Medications Home Medications Medication Instructions Recorded Confirmed Last Taken atorvastatin 20 mg tablet 20 mg PO HS 06/29/22 02/07/24 07/20/22 20:30 cholecalciferol (vitamin D3) 25 1,000 unit PO QAM 06/29/22 02/07/24 07/20/22 08:00 mcg (1,000 unit) tablet (Vitamin D3) duloxetine 30 mg capsule,delayed 30 mg PO QAM 06/29/22 02/07/24 07/21/22 04:30 release (Cymbalta) levothyroxine 100 mcg tablet 100 mcg PO QAM 06/29/22 02/07/24 07/21/22 04:30 metformin 1,000 mg tablet 1,000 mg PO BID 06/29/22 02/07/24 07/20/22 08:00 metoprolol succinate 25 mg 25 mg PO QAM 06/29/22 02/07/24 07/21/22 04:30 tablet,extended release 24 hr valsartan 40 mg tablet 40 mg PO BID 06/29/22 02/07/24 07/20/22 20:30 Wheeled Walker #1 ea 07/05/22 07/05/22 Unknown amino acids (Amino Acid capsule) 1 cap PO DAILY 07/21/22 02/07/24 07/20/22 19:00 amoxicillin 500 mg tablet 2,000 mg (4 x 500 mg) PO ONCE #4 09/05/23 02/07/24 Unknown tabs acetaminophen 500 mg capsule 1,000 mg PO Q6H PRN Pain 02/07/24 02/07/24 Unknown aspirin 81 mg tablet,delayed 81 mg PO QAM 02/07/24 02/07/24 Unknown release (Stewart Low Dose Aspirin) semaglutide 1 mg/dose (4 mg/3 mL) 1 mg subcut WK 02/07/24 02/07/24 Unknown subcutaneous pen injector (Ozempic) Past Medical History Medical History (Updated 02/17/24 @ 10:54 by Skylar Patel PA-C) Diabetes mellitus, type 2 controlled and stable Fatty liver Fibromyalgia History of prolonged Q-T interval on ECG - Noted on remote EKG/not noted on more recent EKGs. S/P unremarkable 14 day property assessment monitor 04/2022. No current/recent issues. No current cards. - No noted QT issues on 02/16/24 preop EKG Hyperlipidemia Hypertension Hypothyroidism Osteoarthritis Exercise / Class Metabolic Activity II 4-5 Yardwork/Stairs/Walk up hill (one flight of stairs - no chest pain or SOB ) Past Family History Family History Other No family history of adverse response to anesthesia Past Surgical History Surgical History History of bilateral breast reduction surgery History of bilateral cataract extraction History of bilateral tubal ligation History of carpal tunnel surgery of right wrist History of colonoscopy History of decompression of ulnar nerve right History of dilatation and curettage History of endometrial ablation History of toe surgery bone spur removal off right great toe History of total hip arthroplasty right History of wisdom tooth extraction Past Anesthesia History No Hx of Anesthesia Complications and No Family Hx of Anesthesia Complications History of PONV No Hx of Motion Sickness and History of PONV (remote hx of PONV in 30s- no issues since ) Social History Smoking Status: Never smoker Do You Dip or Chew Tobacco: No Hx Alcohol Use: No substance use type: does not use Review of Systems - Occ/mild reflux- relieved with Mylanta - Hx of snoring - no witnessed apnea- no hx of sleep study Patient denies chest pain, shortness of breath, dyspnea on exertion, cough, wheezing, palpitations. No hx of seizures, stroke, [place]. No hx of blood clots or blood transfusions Physical Exam Vital Signs VITALS BP 104/72 P 85 TEMP 98.2 SP02 96% RESP 16 Constitutional no acute distress ENMT Mouth: no TMJ clicking Thyromental Distance: > or= 3.5 Finger Breadths (3.5) Mallampati Class: II Missing molars Neck neck extension not limited Respiratory normal respiratory effort; no respiratory distress Auscultation: lungs clear to auscultation bilaterally; no wheezes Cardiovascular Rate/Rhythm: regular rate and regular rhythm Heart Sounds: no murmur Vessels: no carotid bruit Musculoskeletal Spine: no pain with cervical ROM Extremities: extremities normal to inspection Psychiatric Orientation: alert Lab Results Anesthesia Preop Results Results Anesthesia Widget: WBC 6.74 K/ul (4.8-10.8) 02/16/24 Hgb 13.4 g/dl (12.0-16.0) 02/16/24 Hct 39.6 % (37.0-47.0) 02/16/24 Plt 177 K/uL (130-400) 02/16/24 Na 137 mmol/L (136-145) 02/16/24 K 4.2 mmol/L (3.5-5.1) 02/16/24 Cl 101 mmol/L (98-107) 02/16/24 CO2 26 mmol/L (21-32) 02/16/24 BUN 9 mg/dl (6-23) 02/16/24 Creat 0.50 mg/dl (0.6-1.2) L 02/16/24 Glucose Level 140 mg/dl (70-99(Fasting)) H 02/16/24 PT 11.0 Seconds (9.0-12.0) 02/16/24 PTT 28 Seconds (21-31) 02/16/24 INR 1.0 (0.9-1.1) 02/16/24 HA1c 7.2 % (4.5-5.6) H 02/16/24 Blood Type O Positive 02/16/24 Antibody Screen NEGATIVE 02/16/24 Testing Electrocardiogram Date: 02/16/24 Findings: + NSR @ (87bpm) Normal EKG per cardio Chest X-Ray Date: 02/16/24 Findings: + NAD FINDINGS: Cardiomediastinal and hilar silhouettes are within normal limits. Right sided rotator cuff calcific tendinosis. Bones appear grossly intact. No pneumothorax or pleural effusion. The lungs appear clear
--- OUTSIDE RECORDS SUMMARY | 2024-03-16 06:24 | External Medical Summary | Summary of Care ---
Author Name Unknown Organization [facility] Address [address] [place] [address] Phone [phone] Care Team Providers Care Computer Analyst Supervisor Name Role Phone Azul Contreras PA-C Primary Care Provider [phone] Reason for Visit * Reason Onset Date Comments Pre Cert/Prior Auth 02/16/2024 Ozempic Encounter Details Date Type Department Care Team (Late st Contact Info) Description 02/16/[address] [place] [address] Azul Contreras PA-C [facility] [place], [place] [address] Pre Cert/Prior Auth (Ozempic/) Allergies Active Allergy Reactions Criticality Noted Date Comments Cephalosporins 06/05/2001 rash to Keflex Lisinopril Cough 10/31/2012 Sulfa Antibiotics 06/05/2001 anxieties Vancomycin 06/15/2005 Severe i tching documented as of this encounter (statuses as of 02/16/2024) Medications Medication Sig Dispensed Refills Start Date End Date Status TYLENOL EXTRA STRENGTH 500 MG PO TABS 2 tablets every 6 hrs as needed for pain by mouth Active Aspirin 81 MG Tablet Take 1 Tablet by mouth in the morning. Active Fluticasone Propionate 50 MCG/ACT Nasal Suspension (Flonase)Indications: Dysfunction of right eustachian tube Administer 2 Sprays into each nostril in the morning. 18.2 mL 5 02/23/2023 Active DULoxetine HCl 30 MG Oral Capsule Delayed Release Particles (Cymbalta)Indications :Fibromyalgia TAKE ONE CAPSULE BY MOUTH ONCE DAILY 90 Capsule 3 03/01/2023 Active Levothyroxine Sodium 100 MCG Oral Tablet (Levoxyl)Indications: Acquired hypothyroidism Take 1 tablet by mouth daily (at least 30 min prior to breakfast or other meds) 90 Tablet 3 03/01/2023 Active Valsartan 40 MG Oral Tablet (Diovan)Indications:H TN, goal below 130/80 TAKE ONE TABLET BY MOUTH TWICE DAILY 180 Tablet 3 06/09/2023 Active metFORMIN HCl ER 500 MG Oral Tablet Extended Release 24 Hour (Glucophage XR) Take 2 Tablets by mouth 2 times a day with morning and evening meals. 360 Tablet 3 08/04/2023 Active Atorvastatin Calcium 20 MG Oral Tablet (Lipitor)Indications: Dyslipidemia, goal LDL below 100 TAKE ONE TABLET BY MOUTH ONCE DAILY 90 Tablet 1 09/06/2023 Active Vitamin D3 1000 UNIT Oral CapsuleIndications:Vi tamin D deficiency Take 1 Capsule by mouth daily. 09/16/2023 Active Metoprolol Succinate ER 25 MG Oral Tablet Extended Release 24 Hour (toPROL XL)Indications:HTN, goal below 140/90 Take 1 Tablet by mouth in the morning. 90 Tablet 3 11/18/2023 Active Ozempic (1 MG/DOSE) 4 MG/3ML Subcutaneous Solution Pen-injector (Semaglutide (1 MG/DOSE))Indications: Type 2 diabetes mellitus with hemoglobin A1c goal of less than 7.0% (HCC) Inject 1 mg under the skin once a week. 9 mL 1 01/25/2024 Active documented as of this encounter (statuses as of 02/16/2024) Active Problems Problem Noted Date Diagnosed Date Postmenopausal atrophic vaginitis 11/07/2020 Fatty liver 06/21/2017 HTN, goal below 130/80 06/07/2016 Cystocele, midline 12/27/2012 Overview: Incontinent of urine Rectocele 12/27/2012 Vitamin D deficiency 12/05/2009 Type 2 diabetes mellitus wit h hemoglobin A1c goal of less than 7.0% 01/19/2008 Overview: 05/27 dm. Had not tolerated metformin ICD-10 update of inactive term Dyslipidemia, goal LDL below 100 01/19/2008 Family history of premature CAD 01/17/2008 Overview: Brother age 50 LIPID 04/21 Total 185, TG 101, HDL 40 Fibromyalgia Overview: On Cymbalta MELONIE (generalized anxiety disorder) Overview: Xanax 1 mg tid. Had tried prozac, pamelor, paxil, zoloft, lexapro--result in funny feeling that she does like. 03/23 contin current dose at this time. Take when needed only. Cymbalta. Weaning xanax as tolerated 12/01/2015 Off xanax on cymbalta Hypothyroidism Overview: synthroid documented as of this encounter (statuses as of 02/16/2024) Resolved Problems Problem Noted Date Diagnosed Date Resolved Date Elevated liver enzymes 06/21/201703/02 Hyperlipidemia 07/30/2015 11/04/2015 Prolonged QT interval 06/16/20152019 HTN, goal below 140/80 06/16/201507/29 History of colon polyps 01/23/201402/13 History of diverticulosis 01/23/2014 Hypertrophy of breast 06/28/20122017 Menopause 07/03/2011 06/21/2017 Overview: By hormones 06/27 Asthma, in remission 11/06/2009 016 Overview: Per Asthma Taxonomy, Proventil prn Obesity, Class II, BMI 35-39 .9, isolated (see actual BMI) 08/11/2009 03/02/2018 Overview: Per Obesity Taxonomy Abnormal results of liver function studies 07/25/2009 06/21/2017 Overview: Ct liver fatty infilt. Elevated insulin Benign neoplasm of colon 07/02/2009 Overview: Hyperplastic 06/25. Repeat 3-5 yr Carpal tunnel syndrome 01/13/200911/30 Overview: EMG 12/22 left CTS , ulnar neuropathy 05/27 doing well with splint use Hyperinsulinemia 03/17/2008 09/04/2011 Overview: Not tolerate metformin Obesity, Class I, BMI 30.0-3 4.9 (see actual BMI) 01/17/2008 08/11/2009 Overview: Per Obesity Taxonomy Family history of diabetes mellitus 01/14/2008 07/05/2009 ADVANCE DIRECTIVE INFORMATION 01/25/2005 06/21/2017 Overview: No, Advance Directive brochure offered , patient declined. Asthma, allergic 11/06/2009 Overview: Proventil prn documented as of this encounter (statuses as of 02/16/2024) Immunizations Name Administration Dates Next Due COVID-19 mRNA, LNP-s, No Pre serve, 2-Dose Series (Pfizer) 12/25/2020,12/04/2020 H1N1 2009 Influenza, IM 07/10/2009 Pneumococcal Polysaccharide PPV23 (Pneumovax) 05/25/2011,04/16/2009(Deferred: Patient Refused) Seasonal Influenza Vac., MDV , IM, 0.5 mL (Fluzone) 05/25/2011,04/16/2009(Deferred: Patient Refused) TD - Tetanus/Diptheria (ADULT) 01/17/2008 TDAP (age 10 and older)(Boostrix) 10/23/2020 documented as of this encounter Social History Tobacco Use Types Packs/Day Years Used Date Smoking Tobacco: Never Smokeless Tobacco: Never Alcohol Use Standard Drinks/Week Comments No 0 (1 standard drink = 0.6 oz pur e alcohol) PHQ-2 Answer Date Recorded PHQ Adult Total Score 0 03/24/2022 Hunger Vital Sign Answer Date Recorded Within the past 12 months, y ou worried that your food would run out before you got the money to buy more. Never true 08/14/19 23 Within the past 12 months, t he food you bought just didn't last and you didn't have money to get more. Never true 08/13/2022 Sex and Gender Information Value Date Recorded Sex Assigned at Female 08/31/2018 1:30 PM EDT Gender Identity Female 08/31/2018 1:30 PM EDT Sexual Orientation Straight 08/31/2018 1: 30 PM EDT Job Start Date Occupation Industry Not on file Not on file Not on file documented as of this encounter Miscellaneous Notes * Telephone Encounter - Melida Coelho LPN - 02/16/2024 3:50 PM EDT PA sent for Ozamandaic- [id number] documented in this encounter Plan of Treatment Upcoming Encounters Date Type Department Care Team (Late st Contact Info) Description 02/17/2024 2:20 PM EDT Office Visit [place] [id number] [address] [place] [id number] Azul Contreras PA-C [facility] [address] [place] [phone] 04/13/2024 2:00 PM EST Appointment Radiology, [facility] [address] [facility] [place] [id number] 01/21/2025 2:45 PM EDT Office Visit Ophthalmology, [place] [address] [facility] [place] [id number] Ever Valle MD [address] [facility] [place] [address] Scheduled Procedures Name Priority Associated Diagnoses Date/Ti me COLONOSCOPY FLEXIBLE PROXIMA L DIAGNOSTIC Recall History of colonic polyps Family history of colonic polyps Health Maintenance Due Date Last Done Comments Cologuard 01/06/2004 Sigmoidoscopy 01/06/2004 Zoster Vaccines (1 of 2) 2009 Pneumococcal Vaccine: 65+ Years (2 of 2 - PCV) 05/25/2012 05/25/2011 Fecal Occult Blood Test 12/27/2013 12/28/19 13, 12/22/2011, 04/23/2010, Additional history exists Depression Screening 03/24/2023 03/24/2022 DXA Scan 01/06/2024 COVID-19 Vaccine ( season) 2024 12/25/2020, 12/04/2020 Influenza Vaccine (FLU shot) (#1) 2024 05/25/2011, 07/10/2009 Mammogram 03/14/2024 03/14/2023, 02/14, 11/14/2020, Additional history exists Albumin/Creatinine Ratio 07/21/2024 024, 08/09/2022, 10/28/2021, Additional history exists B-12 07/21/2024 07/22/2023, 07/15, 10/28/2021, Additional history exists TSH 07/21/2024 07/22/2023, 01/14, 06/02/2022, Additional history exists HbA1c 07/22/2024 01/23/2024, 03/0 12/2023, 02/01/2023, Additional history exists Diabetic Foot Exam 09/15/2024 09/16/2023, 1 05/24/2021, 05/20/2021, Additional history exists Diabetic Eye Exam 01/18/2025 01/19/2024, , 2023, Additional history exists GFR 01/22/2025 01/23/2024, 03/0 12/2023, 02/01/2023, Additional history exists Lipid Panel 07/21/2028 07/22/2023, 05/16, 05/04/2021, Additional history exists Colonoscopy 09/12/2028 09/13/2023, 08/16, 09/13/2018, Additional history exists Colorectal Cancer Screening 09/12/2028 DTap/Tdap Vaccines (2 - Td or Tdap) 10/23/2030 10/23/2020, 01/17/2008, 09/30/1997 Cervical Cancer Screening Discontinued Pap Smear Discontinued 11/07/2020, 02/14, 03/09/2018, Additional history exists RETIRED - COLONOSCOPY-EVERY 5 YRS AGES 18-100 Discontinued 09/13/2023, 09/13/2023, 09/13/2018, Additional history exists HPV (Gardasil) Vaccine Aged Out No lo nger eligible based on patient's age to complete this topic HPV/Co-Test Discontinued Hepatitis B Vaccine Aged Out No longe r eligible based on patient's age to complete this topic MENINGOCOCCAL (MENACTRA/MENVEO) Aged Out No longer eligible based on patient's age to complete this topic documented as of this encounter Medical Devices Not on filedocumented as of this encounter Advance Directives * Full Code (Latest Code Status on File) Date Activated Date Inactivated Comments 05/04/2012 5:01 PM 05/05/2012 1:46 PM This order reflects the patients wishes and were consensually agreed upon. Question Answer Comments Discussion of Advance Directives occurred with: Not Discussed Care Teams Computer Analyst Supervisor Relationship Specialty Start Date End Date Azul Contreras PA-C [address] [facility] [address] [place] [id number] PCP - General Physician Mix Technician 05/08/20 documented as of this encounter
--- OUTSIDE RECORDS SUMMARY | 2024-03-16 06:24 | External Medical Summary | Summary of Care ---
Author Name Unknown Organization [facility] Address [address] [place] [address] Phone [phone] Care Team Providers Care Manager Custom Name Role Phone Azul oCntreras PA-C Primary Care Provider +1- [phone] Reason for Visit * Reason Comments PAP PAP screening today. Pt is having a Hip replacement on the 03/16 and providers in ortho want her to skip the Ozempic on the 03/12 pt inquiring as to when she should restart this medications. Melida Coelho LPN Encounter Details Date Type Department Care Team (Late st Contact Info) Description 02/17/2024 2:20 PM EDT Office Visit [place] [address] [place] [address] [phone] Azul Contreras PA-C [address] [place] [address] [place] [address] [phone] Pap smear for cervical cancer screening*; Type 2 diabetes mellitus with hemoglobin A1c goal of less than 7.0% (HCC); Dyslipidemia, goal LDL below 100; HTN, goal below 130/80; MELONIE (generalized anxiety disorder); Acquired hypothyroidism; Postmenopausal atrophic vaginitis Allergies Active Allergy Reactions Criticality Noted Date Comments Cephalosporins 06/05/2001 rash to Keflex Lisinopril Cough 10/31/2012 Sulfa Antibiotics 06/05/2001 anxieties Vancomycin 06/15/2005 Severe i tching documented as of this encounter (statuses as of 02/17/2024) Medications Medication Sig Dispensed Refills Start Date [...] as of this encounter (statuses as of 02/17/2024) Active Problems Problem Noted Date Diagnosed Date [...] as of this encounter (statuses as of 02/17/2024) Resolved Problems Problem Noted Date Diagnosed Date [...] , patient declined. Asthma, allergic 11/06/2009 Overview: Ortegatil prn documented as of this encounter (statuses as of 02/17/2024) Immunizations Name Administration Dates Next Due COVID-19 mRNA, LNP-s, No Pre serve, 2-Dose Series (Pfizer) 12/25/2020,12/04/2020 H1N1 2009 Influenza, IM 07/10/2009 Pneumococcal Polysaccharide PPV23 (Pneumovax) 05/25/2011,04/16/2009(Deferred: Patient Refused) Seasonal Influenza Vac., MDV , IM, 0.5 mL (Fluzone) 05/25/2011,04/16/2009(Deferred: Patient Refused) TD - Tetanus/Diptheria (ADULT) 01/17/2008,1997 TDAP (age 10 and older)(Boostrix) 10/23/2020 documented [...] on file documented as of this encounter Last Filed Vital Signs Vital Sign Reading Time Taken Comments Blood Pressure 100/64 02/17/2024 2:29 PM EDT Pulse 86 02/17/2024 2:29 PM EDT Temperature 35.8 C (96.4 F) 02/17/2024 2:29 PM ED T Respiratory Rate 18 02/17/2024 2:29 PM EDT Oxygen Saturation 96% 02/17/2024 2:29 PM EDT Inhaled Oxygen Concentration - - Weight 73.1 kg (161 lb 1.6 oz) 02/17/2024 2:29 P M EDT Height 157.5 cm (5' 2") 02/17/2024 2:29 PM EDT Body Mass Index 29.47 02/17/2024 2:29 PM EDT documented in this encounter Patient Instructions * Patient Instructions* Melida Coelho LPN - 02/17/2024 2:31 PM EDT Osteoporosis: Screening for Bone Loss The strength of bones is measured by their density (thickness). High bone density means bones are less likely to fracture. If you are at risk for bone loss, your healthcare provider may refer you forbone density testing. Bone Density Testing Bone density testing is safe, quick, easy, and painless. Testing can detect osteoporosis before a fracture happens. It can also predict the risk of future fractures. And testing can measure the response to treatment. There are two types of tests that you may have: Peripheral tests are used for screening. They measure density in the finger, wrist, knee, flanagan, or heel. A common peripheral test is the quantitative ultrasound (QUS). Central tests are used for diagnosis. They measure density in the hip or spine. The main centraltest is the dual energy x-ray absorptiometry (DXA). The DXA is the standard bone density test. Who Should Be Tested? All postmenopausal women under age 65, with one or more risk factors in addition to menopause. All women age 65 and older. Postmenopausal women with fractures. Women who are thinking about treatment for osteoporosis. Women who have been on hormone therapy for a long time. Men or women with certain medical conditions or who are taking certain medications (such as glucocorticoids or prednisone) for a long period. Common Testing Sites Any bone can fracture, but with osteoporosis some bones fracture more easily. These include bones in the spine, wrist, shoulder, and hip. Thats why bone density testing may be done at one or more of these sites. Understanding Your Results The results of your test may seem confusing at first. Dont be afraid to ask your provider to explain. Your bone mineral density (BMD) describes the thickness of the bone that was scanned. Your healthcare provider will compare your BMD with the BMD of young, healthy bone. The result is called a T-score. Bones remodel at different rates. So, a healthy T-score in the wrist doesnt mean the spine is also healthy. Thats why more than one site may be scanned. [id number] [place] [address]. All rights reserved. This information is not intended as a substitute for professional medical care. Always follow your healthcare professional's instructions documented in this encounter Progress Notes * Melida Coelho LPN - 02/17/2024 2:31 PM EDT Dexa scan ordered today. Provider aware. Melida Coelho LPN * Azul Contreras PA-C - 02/17/2024 2:15 PM EDT Subjective: Jaymie Francisco is a 64 year old female. Chief Complaint Patient presents with PAP PAP screening today. Pt is having a Hip replacement on the 03/16 and providers in ortho want her to skip the Ozempic on the 03/12 pt inquiring as to when she should restart this medications. Melida Coelho LPN HPI: Patient presents for gynecological exam. Postmenopausal. . States she is doing well andhas no concerns. CHRONIC: DM2: A1c elevated. Ozempic increased to 1 mg. Continuing with Metformin. Ozempic held Tuesday prior to surgery, she is to resume Tuesday after surgery. Not checking blood sugars. Denies blurry vision, frequent urination, or increased thirst. Hemoglobin A1C last results: Lab Results Component Value Date/Time HEMOGLOBIN A1C - [facility] 7.5 (H) 01/23/2024 09:38 AM HEMOGLOBIN A1C - [facility] 7.2 (H) 07/22/2023 09:12 AM HEMOGLOBIN A1C - [facility] 6.7 (H) 02/01/2023 10:13 AM HEMOGLOBIN A1C - [facility] 6.9 (H) 05/12/2020 10:14 AM HEMOGLOBIN A1C - [facility] 6.8 (H) 10/01/2019 09:33 AM HEMOGLOBIN A1C - [facility] 7.1 (H) 06/11/2019 08:30 AM HEMOGLOBIN A1C - [facility] 7.1 (H) 06/11/2019 08:30 AM HTN: Well controlled. Taking Diovan and metoprolol as prescribed. Denies side effects. Dyslipidemia: Very well controlled. Taking atorvastatin as prescribed. Denies side effects, specifically myalgias. Denies chest pain, SOB, edema, syncope, or palpitations. Lipid Panel Results: Results for orders placed or performed in visit on 07/22/23 LIPID PANEL WITH DIRECT LDL IF TG IS HIGH Result Value Ref Range Triglycerides 272 (H) <=174 mg/dL Cholesterol 123 <200 mg/dL HDL Cholesterol 36 (L) >49 mg/dL Non-HDL Cholesterol 87 <=159 mg/dL Lab Results Component Value Date/Time LDL CHOLESTEROL (DIRECT MEASURE) - [facility] 47 07/22/2023 09:12 AM Hypothyroidism: Stable with levothyroxine 100 mcg Denies fatigue or hair/skin/nails/weight changes. TSH Results: Lab Results Component Value Date/Time TSH - [facility] 2.95 07/22/2023 09:12 AM TSH - [facility] 1.83 02/01/2023 10:13 AM TSH - [facility] 1.39 06/02/2022 12:13 PM TSH - [facility] 2.29 05/12/2020 10:14 AM TSH - [facility] 1.68 10/01/2019 09:33 AM TSH - [facility] 0.57 08/31/2018 02:01 PM Fibromyalgia/Anxiety: Stable with Cymbalta. Enjoys life. Reacting to stress appropriately. Denies suicidal thoughts/plans/actions. Vit D Deficiency: Stable with supplement. PMH: Patient Active Problem List Diagnosis Fibromyalgia MELONIE (generalized anxiety disorder) Hypothyroidism Family history of premature CAD Type 2 diabetes mellitus with hemoglobin A1c goal of less than 7.0% (HCC) Dyslipidemia, goal LDL below 100 Vitamin D deficiency Cystocele, midline Rectocele HTN, goal below 130/80 Fatty liver Postmenopausal atrophic vaginitis Current Outpatient Medications Medication Sig Dispense Refill TYLENOL EXTRA STRENGTH 500 MG PO TABS 2 tablets every 6 hrs as needed for pain by mouth Aspirin 81 MG Tablet Take 1 Tablet by mouth in the morning. Fluticasone Propionate 50 MCG/ACT Nasal Suspension (Flonase) Administer 2 Sprays into each nostril in the morning. 18.2 mL 5 DULoxetine HCl 30 MG Oral Capsule Delayed Release Particles (Cymbalta) TAKE ONE CAPSULE BY MOUTH ONCE DAILY 90 Capsule 3 Levothyroxine Sodium 100 MCG Oral Tablet (Levoxyl) Take 1 tablet by mouth daily (at least 30 min prior to breakfast or other meds) 90 Tablet 3 Valsartan 40 MG Oral Tablet (Diovan) TAKE ONE TABLET BY MOUTH TWICE DAILY 180 Tablet 3 metFORMIN HCl ER 500 MG Oral Tablet Extended Release 24 Hour (Glucophage XR) Take 2 Tablets by mouth 2 times a day with morning and evening meals. 360 Tablet 3 Atorvastatin Calcium 20 MG Oral Tablet (Lipitor) TAKE ONE TABLET BY MOUTH ONCE DAILY 90 Tablet 1 Vitamin D3 1000 UNIT Oral Capsule Take 1 Capsule by mouth daily. Metoprolol Succinate ER 25 MG Oral Tablet Extended Release 24 Hour (toPROL XL) Take 1 Tablet by mouth in the morning. 90 Tablet 3 Ozempic (1 MG/DOSE) 4 MG/3ML Subcutaneous Solution Pen-injector (Semaglutide (1 MG/DOSE)) Inject 1 mg under the skin once a week. 9 mL 1 No current facility-administered medications for this visit. Past Medical History: Diagnosis Date Asthma, in remission 11/06/2009 Per Asthma Taxonomy, Proventil prn Benign neoplasm of colon 07/01/09 normal and hyperplastic tissue-- repeat 3-5 years DM type 2, goal A1c below 7 01/19/200805/27 dm. Had not tolerated metformin Dyslipidemia, goal LDL below 100 01/19/2008 GENERALIZED ANXIETY DIS Xanax 1 mg tid. Had tried prozac, pamelor, paxil, zoloft, lexapro--result in funny feeling that shedoes like. 03/23 contin current dose at this time. Take when needed only. Cymbalta. Weaning xanax as tolerated HTN (hypertension) HYPOTHYROIDISM NOS synthroid Measles without complication Measles Mumps without complication Mumps Regional enteritis (HCC) Food Poisoning Rubella, uncomplicated Rubella Screening-pulmonary TB Initailly positive, had repeat test whic was negative. Has negative CXR. Varicella without complication Chicken Pox Past Surgical History: Procedure Laterality Date COLONOSCOPY W/ BIOPSY (RECTUM) 07/01/2009 done polyps x4, diverticulosis, internal hemorrhoids, pathology-- normal and hyperplastic tissue-- repeat 3-5 years COLONOSCOPY, DIAGNOSTIC (RECTUM) 07/09/2013 1 benign polyp, repeat in 5 yrs/COLONOSCOPY FLEXIBLE PROXIMAL DIAGNOSTIC performed by Jamal Gonzalez MD at ENDOSCOPY [facility] COLONOSCOPY, DIAGNOSTIC (RECTUM) N/A 09/13/2018 normal/recall 5 years/COLONOSCOPY FLEXIBLE PROXIMAL DIAGNOSTIC performed by Jamal Gonzalez MD at ENDOSCOPY [facility] COLONOSCOPY, DIAGNOSTIC (RECTUM) N/A 09/13/2023 diverticulosis/hemorrhoids/recall 5 years/COLONOSCOPY FLEXIBLE PROXIMAL DIAGNOSTIC performed by Mela Thrasher MD at ENDOSCOPY [facility] DENTAL SURGERY PROCEDURE NEC DILATION AND CURETTAGE (D&C) 2004 D&C, non OB HALLUX RIGIDUS CORRECTED WITH CHIELECTOMY Right 07/06/2019 CORRECTION HALLUX RIGIDUS, CHIELECTOMY WITHOUT IMPLANT performed by Nilam Andersen DPM at OR [facility] HYSTEROSCOPY,DIAGNOSTIC 2004 HYSTEROSCOPY,DIAGNOSTIC 12/22/2006 with D&C, endometrial ablation via thermochoice LAPAROSCOPY DIAGNOSTIC 2003 with removal of ovarian cyst LASERING OF SECONDARY CATARACT 05/27/2014 Yag cap OD LIGATE/CUT OVIDUCT(S) Tubal Ligation REDUCTION OF BREAST 05/04/2012 REDUCTION MAMMOPLASTY performed by Nickolas Orr MD at [place] [facility] REMOVE CATARACT, INSERT LENS PROSTH 2011 OU Alli Review of patient's allergies indicates: Allergen Reactions Cephalosporins rash to Keflex Lisinopril Cough Sulfa Antibiotics anxieties Vancomycin Severe i tching Family History Problem Relation Name Age of Onset Diabetes Mother Thyroid Disorder Mother hypothyroid Gastro-intestinal disorder Mother liver problems Heart Disorder Mother CAD S/P CABG X 3 Hypertension Father Mental Disorder Father Anxiety Heart Disorder Father Carotid endartectomy Other (PCI) Father Diabetes Grandmother (Maternal) Mental Disorder Grandmother (Maternal) Alzheimer's Disease Cancer Grandfather (Maternal) Lung Diabetes Grandmother (Paternal) Cancer Grandfather (Paternal) Lung Other (mi) Other neice age 30, DM and clot Heart Disorder Brother CAD S/P CABG Breast Cancer Niece/nephew Family Status Relation Status Mo Alive dm, [place] late 70's. thyroid, liver problems (noninfectious) Fa at age 76 acute bowel infarction. HTN, anxiey, COPD CAD, bladder cancer, RF Bro Alive [place] ager 50, DM; cancer ? type MGMA MGFA PGMA PGFA Son Alive Son Alive Other (Not Specified) Bro (Not Specified) Niece/nephew (Not Specified) Social History Tobacco Use Smoking status: Never Smokeless tobacco: Never Substance Use Topics Alcohol use: No Vaping/E-Cigarette Use Vaping/E-Cigarette Use Never User Vaping/E-Cigarette Substances Vaping/E-Cigarette Devices Review of Systems: All reviewed and negative unless mentioned in HPI. Objective: BP 100/64 | Pulse 86 | Temp 35.8 C (96.4 F) (Temporal Artery) | Resp 18 | Ht 1.575 m (5' 2") | Wt 73.1 kg (161 lb 1.6 oz) | SpO2 96% | BMI 29.47 kg/m | BSA 1.79 m Physical Exam: General: alert, healthy, and no distress Neck: supple, no adenopathy, thyroid normal size, non-tender, without nodularity Heart: regular rate & rhythm, no murmur, and no gallops Lungs: clear to auscultation Pulses: radial=2/4 Abdomen: abdomen soft, non-tender, and normal bowel sounds Breasts: Inspection negative, S/P bilateral breast reduction, No nipple retraction or dimpling, No nipple discharge or bleeding, No axillary or supraclavicular adenopathy, Normal to palpation withoutdominant masses Pelvic Exam: External genitalia and vagina anatomy atrophic, No significant vulvar lesions, No significant vaginal discharge, Cervix normal in appearance without lesions or purulent discharge, Uterusis normal size, shape, and consistency, Adnexea normal bilaterally. No abnormal pelvic masses, Pap obtained with broom Skin: skin color, texture, turgor are normal, no rashes or significant lesions ASSESSMENT/PLAN: Pap smear for cervical cancer screening (Primary) - RACING SECRETARY AND HANDICAPPER PAP SCREEN; Future; Expected date: 02/17/2024 Type 2 diabetes mellitus with hemoglobin A1c goal of less than 7.0% (HCC) Dyslipidemia, goal LDL below 100 HTN, goal below 130/80 MELONIE (generalized anxiety disorder) Acquired hypothyroidism Postmenopausal atrophic vaginitis Follow Up: Return in about 6 months (around 08/17/2024). Azul Contreras PA-C documented in this encounter Nursing Notes * Melida Coelho LPN - 02/17/2024 2:31 PM EDT Chief Complaint Patient presents with PAP PAP screening today. Pt is having a Hip replacement on the 03/16 and providers in ortho want her to skip the Ozempic on the 03/12 pt inquiring as to when she should restart this medications. Melida Coelho LPN Patient has been verbally educated on the need or importance of Surveys: Depression, Pneumococcal Vaccine, and HPV Vaccine and has declined topic(s). Melida Coelho LPN documented in this encounter Plan of Treatment Upcoming Encounters Date Type Department Care Team (Late st Contact Info) Description 04/13/2024 2:00 PM EST Appointment Radiology, [facility] [address] [place] [phone] 08/17/2024 2:20 PM EDT Office Visit Family [facility] [address] [place] [phone] Azul Contreras PA-C [address] [facility] [address] [facility] [address] 01/21/2025 2:45 PM EDT Office Visit Ophthalmology, [place] [address] [facility] [place] [address] Ever Valle MD [address] [facility] [place] [address] Pending Results Name Type Priority Associated Diagnoses Date /Time RACING SECRETARY AND HANDICAPPER PAP SCREEN Pathology Routine Pap smear for cervical cancer screening 02/17/2024 3:22 PM EDT Scheduled Orders Name Type Priority Associated Diagnoses Orde r Schedule RACING SECRETARY AND HANDICAPPER PAP SCREEN Pathology Routine Pap smear for cervical cancer screening Expected: 02/17/2024, Expires: 03/19/2025 Scheduled Procedures Name Priority Associated Diagnoses Date/Ti [...] Not on filedocumented as of this encounter Visit Diagnoses Diagnosis Pap smear for cervical cancer screening- Primary Screening for malignant neoplasm of the cervix Type 2 diabetes mellitus with hemoglobin A1c goal of less than 7.0% (HCC) Dyslipidemia, goal LDL below 100 Other and unspecified hyperlipidemia HTN, goal below 130/80 Unspecified essential hypertension MELONIE (generalized anxiety disorder) Generalized anxiety disorder Acquired hypothyroidism Unspecified hypothyroidism Postmenopausal atrophic vaginitis documented in this encounter Advance Directives * Full Code (Latest Code Status on File) Date Activated Date Inactivated Comments 05/04/2012 5:01 PM 05/05/2012 1:46 PM This order reflects the patients wishes and were consensually agreed upon. Question Answer Comments Discussion of Advance Directives occurred with: Not Discussed Care Teams Manager Custom Relationship Specialty Start Date End Date Azul Contreras PA-C [address] [facility] [facility] [address] [place] [address] PCP - General Physician Quality Assurance Monitor Final 05/08/20 documented as of this encounter
--- OUTSIDE RECORDS SUMMARY | 2024-03-16 06:24 | External Medical Summary | Summary of Care ---
Author Name Unknown Organization [facility] Address [address] [place] [place] [address] Phone [phone] Care Team Providers Care Regulatory Compliance Specialist Name Role Phone Azul Contreras PA-C Primary Care Provider +1- [phone] Reason for Visit * Reason Comments PAP PAP screening today. Pt is having a Hip replacement on the 03/16 and providers in ortho want her to skip the Ozempic on the 03/12 pt inquiring as to when she should restart this medications. Melida Coelho LPN Encounter Details Date Type Department Care Team (Late st Contact Info) Description 02/17/2024 2:20 PM EDT Office Visit [place] [address] [place] [address] [phone] Azul Contreras PA-C [address] [place] [address] [place] [address] [phone] Pap smear for cervical cancer screening*; Type [...] more than one site may be scanned. [id number] [place] [address]. All rights reserved. This information is not [...] by Jamal Gonzalez MD at [facility]OSCOPY [facility] COLONOSCOPY, DIAGNOSTIC (RECTUM) N/A 09/13/2018 normal/recall 5 years/COLONOSCOPY FLEXIBLE PROXIMAL DIAGNOSTIC performed by Jamal Gonzalez MD at [facility]OSCOPY [facility] COLONOSCOPY, DIAGNOSTIC (RECTUM) N/A 09/13/2023 diverticulosis/hemorrhoids/recall 5 years/COLONOSCOPY FLEXIBLE PROXIMAL DIAGNOSTIC performed by Mela Thrasher MD at ENDOSCOPY [facility] DENTAL SURGERY PROCEDURE NEC DILATION AND CURETTAGE (D&C) 2004 D&C, non OB HALLUX RIGIDUS CORRECTED WITH CHIELECTOMY Right 07/06/2019 CORRECTION HALLUX RIGIDUS, CHIELECTOMY WITHOUT IMPLANT performed by Nilam Andersen DPM at OR [facility] HYSTEROSCOPY,DIAGNOSTIC 2004 HYSTEROSCOPY,DIAGNOSTIC 12/22/2006 with D&C, endometrial ablation via thermochoice LAPAROSCOPY DIAGNOSTIC 2003 with removal of ovarian cyst LASERING OF SECONDARY CATARACT 05/27/2014 Yag cap OD LIGATE/CUT OVIDUCT(S) Tubal Ligation REDUCTION OF BREAST 05/04/2012 REDUCTION MAMMOPLASTY performed by Nickolas Orr MD at OR [facility] REMOVE CATARACT, INSERT LENS PROSTH 2011 OU [...] Family Status Relation Status Mo Alive dm, [place] late 70's. thyroid, liver problems (noninfectious) Fa at age 75 acute bowel infarction. HTN, anxiey, COPD CAD, bladder cancer, RF Bro Alive [place] ager 50, DM; cancer ? type MGMA [...] smear for cervical cancer screening (Primary) - CLINICAL SOCIOLOGIST PAP SCREEN; Future; Expected date: 02/17/2024 Type [...] Description 04/13/2024 2:00 PM EST Appointment Radiology, [facility] [address] [place] [phone] 08/17/2024 2:20 PM EDT Office Visit Family [facility] [address] [place] [phone] Azul Contreras PA-C [address] [facility] [address] [facility] [place] [address] 01/21/2025 2:45 PM EDT Office Visit Ophthalmology, [place] [address] [facility] [place] [address] Ever Valle MD [address] [facility] [place] [address] Pending Results Name Type Priority Associated Diagnoses Date /Time CLINICAL SOCIOLOGIST PAP SCREEN Pathology Routine Pap smear for cervical cancer screening 02/17/2024 3:22 PM EDT Scheduled Orders Name Type Priority Associated Diagnoses Orde r Schedule CLINICAL SOCIOLOGIST PAP SCREEN Pathology Routine Pap smear for [...] Directives occurred with: Not Discussed Care Teams Regulatory Compliance Specialist Relationship Specialty Start Date End Date Azul Contreras PA-C [address] [facility] [address] [place] [address] PCP - General Physician Building Equipment Operator 05/08/20 documented as of this encounter
--- OUTSIDE RECORDS SUMMARY | 2024-03-16 06:24 | External Medical Summary | Summary of Care ---
Author Name Unknown Organization [facility] Address [address] [facility] [place] [address] Phone [phone] Care Team Providers Care Transformer Stock Clerk Name Role Phone Azul Contreras PA-C Primary Care Provider +1- [phone] Reason for Visit * Reason Comments PAP PAP screening today. Pt is having a Hip replacement on the 03/16 and providers in ortho want her to skip the Ozempic on the 03/12 pt inquiring as to when she should restart this medications. Melida Coelho LPN Encounter Details Date Type Department Care Team (Late st Contact Info) Description 02/17/2024 2:20 PM EDT Office Visit [place] [address] [address] [place] [address] [phone] Azul Contreras PA-C [address] [place] [address] [place] [address] [phone] Pap smear for cervical cancer screening*; Type [...] more than one site may be scanned. [phone] [place] [address]. All rights reserved. This information is not [...] performed by Jamal Gonzalez MD at [facility] COLONOSCOPY, DIAGNOSTIC (RECTUM) N/A 09/13/2018 normal/recall 5 years/COLONOSCOPY FLEXIBLE PROXIMAL DIAGNOSTIC performed by Jamal Gonzalez MD at [facility] COLONOSCOPY, DIAGNOSTIC (RECTUM) N/A 09/13/2023 diverticulosis/hemorrhoids/recall 5 years/COLONOSCOPY FLEXIBLE PROXIMAL DIAGNOSTIC performed by Mela Thrasher MD at [facility] DENTAL SURGERY PROCEDURE NEC DILATION AND CURETTAGE (D&C) 2004 D&C, non OB HALLUX RIGIDUS CORRECTED WITH CHIELECTOMY Right 07/06/2019 CORRECTION HALLUX RIGIDUS, CHIELECTOMY WITHOUT IMPLANT performed by Nilam Andersen DPM at OR [facility] HYSTEROSCOPY,DIAGNOSTIC 2004 HYSTEROSCOPY,DIAGNOSTIC 12/22/2006 with D&C, endometrial ablation via thermochoice LAPAROSCOPY DIAGNOSTIC 2003 with removal of ovarian cyst LASERING OF SECONDARY CATARACT 05/27/2014 Yag cap OD LIGATE/CUT OVIDUCT(S) Tubal Ligation REDUCTION OF BREAST 05/04/2012 REDUCTION MAMMOPLASTY performed by Nickolas Orr MD at OR [facility] REMOVE CATARACT, INSERT LENS [...] Family Status Relation Status Mo Alive dm, MD late 70's. thyroid, liver problems (noninfectious) Fa at age 75 acute bowel infarction. HTN, anxiey, COPD CAD, bladder cancer, RF Bro Alive MD ager 49, DM; cancer ? type MGMA [...] smear for cervical cancer screening (Primary) - AUTOCUTTER PAP SCREEN; Future; Expected date: 02/17/2024 Type [...] Description 04/13/2024 2:00 PM EST Appointment Radiology, [facility] [address] [place] [id number] 08/17/2024 2:20 PM EDT Office Visit Family [facility] [address] [place] [address] Azul Contreras PA-C [address] [facility] [address] [facility] [address] 01/21/2025 2:45 PM EDT Office Visit Ophthalmology, [place] [address] [facility] [place] [address] Ever Valle MD [address] [facility] [place] [address] Pending Results Name Type Priority Associated Diagnoses Date /Time AUTOCUTTER PAP SCREEN Pathology Routine Pap smear for cervical cancer screening 02/17/2024 3:22 PM EDT Scheduled Orders Name Type Priority Associated Diagnoses Orde r Schedule AUTOCUTTER PAP SCREEN Pathology Routine Pap smear for [...] Directives occurred with: Not Discussed Care Teams Transformer Stock Clerk Relationship Specialty Start Date End Date Azul Contreras PA-C [address] [facility] [address] [place] [address] PCP - General Physician Land Law Examiner 05/08/20 documented as of this encounter
--- OUTSIDE RECORDS SUMMARY | 2024-03-16 06:24 | External Medical Summary | Summary of Care ---
Author Name Unknown Organization [facility] Address [address] [place] [address] Phone [phone] Care Team Providers Care Ceramic Restorer Name Role Phone Azul Contreras PA-C Primary Care Provider +1- [phone] Reason for Visit * Reason Onset Date Comments Pre Cert/Prior Auth 02/16/2024 Ozempic Encounter Details Date Type Department Care Team (Late st Contact Info) Description 02/16/[address] [place] [address] Azul Contreras PA-C [facility] [place], [place] [phone] Pre Cert/Prior Auth (Ozempic/) Allergies Active Allergy Reactions Criticality Noted Date Comments Cephalosporins 06/05/2001 rash to Keflex Lisinopril Cough 10/31/2012 Sulfa Antibiotics 06/05/2001 anxieties Vancomycin 06/15/2005 Severe i tching documented as of this encounter (statuses as of 02/20/2024) Medications Medication Sig Dispensed Refills Start Date [...] as of this encounter (statuses as of 02/20/2024) Active Problems Problem Noted Date Diagnosed Date [...] as of this encounter (statuses as of 02/20/2024) Resolved Problems Problem Noted Date Diagnosed Date [...] as of this encounter (statuses as of 02/20/2024) Immunizations Name Administration Dates Next Due COVID-19 [...] Telephone Encounter - Melida Coelho LPN - 02/20/2024 11:05 AM EDT T/C pt at this time aware of approval of ozempic and picked med up already * Telephone Encounter - Melida Coelho LPN - 02/16/2024 3:50 PM EDT PA sent for Ozempic- [id number] documented in this encounter Plan of Treatment Upcoming Encounters Date Type Department Care Team (Late st Contact Info) Description 04/13/2024 2:00 PM EST Appointment Radiology, [address] [place] [phone] 08/17/2024 2:20 PM EDT Office Visit Family [facility] [address] [place] [address] Azul Contreras PAAllynC [address] [facility] [place] [address] 01/21/2025 2:45 PM EDT Office Visit Ophthalmology, [place] [address] [place] [address] Ever Valle MD [address] [facility] [place] [address] Scheduled Procedures Name Priority Associated Diagnoses Date/Ti [...] Directives occurred with: Not Discussed Care Teams Ceramic Restorer Relationship Specialty Start Date End Date Azul Contreras PA-C [address] [facility] [place] [address] PCP - General Physician Safety Fire Boss 05/08/20 documented as of this encounter
--- OUTSIDE RECORDS SUMMARY | 2024-03-16 06:24 | External Medical Summary | Summary of Care ---
Author Name Unknown Organization [facility] Address [address] [place] [address] Phone [phone] Care Team Providers Care Sofa Inspector Name Role Phone Raul Contreras PA-C Primary Care Provider +1- [phone] Reason for Visit * Reason Comments eRx-Medication Refill Encounter Details Date Type Department Care Team (Late st Contact Info) Description 02/26/2024 Refill [place] [address] [address] [place] [address] Raul Contreras PA-C [facility] [place] [address] Fibromyalgia; Acquired hypothyroidism Allergies Active Allergy Reactions Criticality Noted Date Comments Cephalosporins 06/05/2001 rash to Keflex Lisinopril Cough 10/31/2012 Sulfa Antibiotics 06/05/2001 anxieties Vancomycin 06/15/2005 Severe i tching documented as of this encounter (statuses as of 02/28/2024) Medications Medication Sig Dispensed Refills Start Date End Date Status TYLENOL EXTRA STRENGTH 500 MG PO TABS 2 tablets every 6 hrs as needed for pain by mouth Active Aspirin 81 MG Tablet Take 1 Tablet by mouth in the morning. Active Fluticasone Propionate 50 MCG/ACT Nasal Suspension (Flonase)Indication s:Dysfunction of right eustachian tube Administer 2 Sprays into each nostril in the morning. 18.2 mL 5 3 Active Valsartan 40 MG Oral Tablet (Diovan)Indications :HTN, goal below 130/80 TAKE ONE TABLET BY MOUTH TWICE DAILY 180 Tablet 3 4 Active metFORMIN HCl ER 500 MG Oral Tablet Extended Release 24 Hour (Glucophage XR) Take 2 Tablets by mouth 2 times a day with morning and evening meals. 360 Tablet 3 4 Active Atorvastatin Calcium 20 MG Oral Tablet (Lipitor)Indication s:Dyslipidemia, goal LDL below 100 TAKE ONE TABLET BY MOUTH ONCE DAILY 90 Tablet 1 4 Active Vitamin D3 1000 UNIT Oral CapsuleIndications: Vitamin D deficiency Take 1 Capsule by mouth daily. 4 Active Metoprolol Succinate ER 25 MG Oral Tablet Extended Release 24 Hour (toPROL XL)Indications:HTN, goal below 140/90 Take 1 Tablet by mouth in the morning. 90 Tablet 3 4 Active Ozempic (1 MG/DOSE) 4 MG/3ML Subcutaneous Solution Pen-injector (Semaglutide (1 MG/DOSE))Indication s:Type 2 diabetes mellitus with hemoglobin A1c goal of less than 7.0% ([facility]) Inject 1 mg under the skin once a week. 9 mL 1 4 Active DULoxetine HCl 30 MG Oral Capsule Delayed Release Particles (Cymbalta)Indicatio ns:Fibromyalgia TAKE ONE CAPSULE BY MOUTH ONCE DAILY 90 Capsule 2 4 Active Levothyroxine Sodium 100 MCG Oral Tablet (Levoxyl)Indication s:Acquired hypothyroidism TAKE ONE TABLET BY MOUTH ONCE DAILY at least 30 mintues prior to breakfast or other meds 90 Tablet 2 4 Active DULoxetine HCl 30 MG Oral Capsule Delayed Release Particles (Cymbalta)Indicatio ns:Fibromyalgia TAKE ONE CAPSULE BY MOUTH ONCE DAILY 90 Capsule 3 3 02/28/20 24 Discontinued Levothyroxine Sodium 100 MCG Oral Tablet (Levoxyl)Indication s:Acquired hypothyroidism Take 1 tablet by mouth daily (at least 30 min prior to breakfast or other meds) 90 Tablet 3 3 02/28/20 24 Discontinued documented as of this encounter (statuses as of 02/28/2024) Active Problems Problem Noted Date Diagnosed Date [...] as of this encounter (statuses as of 02/28/2024) Resolved Problems Problem Noted Date Diagnosed Date [...] as of this encounter (statuses as of 02/28/2024) Immunizations Name Administration Dates Next Due COVID-19 [...] encounter Miscellaneous Notes * Telephone Encounter - Gonsalo Sanchez RPh - 02/28/2024 11:33 AM EDT Signed Prescriptions: Disp Refills DULoxetine HCl 30 MG Oral Capsule Delayed *90 Cap*2 Sig: TAKE ONE CAPSULE BY MOUTH ONCE DAILYAuthorizing Provider: RAUL CONTRERAS User: GONSALO SANCHEZ Levothyroxine Sodium 100 MCG Oral Tablet (*90 Tab*2 Sig: TAKE ONE TABLET BY MOUTH ONCE DAILY at least 30 mintues prior to breakfast or other medsAuthorizing Provider: RAUL CONTRERASUser: GONSALO SANCHEZ documented in this encounter Plan of Treatment Upcoming Encounters Date Type Department Care Team (Late st Contact Info) Description 04/13/2024 2:00 PM EST [address] [phone] 08/17/2024 2:20 PM EDT Office Visit Family [facility] [place] [address] [place] [address] Raul Contreras PA-C [address] [facility] [address] [place] [address] 01/21/2025 2:45 PM EDT Office Visit Ophthalmology, [place] [address] [place] [address] Ever Valle MD [address] [place] [address] Scheduled Procedures Name Priority Associated Diagnoses Date/Ti [...] Td or Tdap) 10/23/2030 10/23/2020, 01/17/2008, 09/30/1997 RETIRED - COLONOSCOPY-EVERY 5 YRS AGES 18-100 Discontinued 09/13/2023, 09/13/2023, 09/13/2018, Additional history exists Cervical Cancer Screening Discontinued HPV/Co-Test Discontinued 02/17/2024 Pap Smear Discontinued 02/17/2024, 10/15, 03/09/2018, Additional history exists HPV (Gardasil) Vaccine Aged Out No lo nger eligible based on patient's age to complete this topic Hepatitis B Vaccine Aged Out No longe r eligible based on patient's age to complete this topic MENINGOCOCCAL (MENACTRA/MENVEO) Aged Out No longer eligible based on patient's age to complete this topic documented as of this encounter Medical Devices Not on filedocumented as of this encounter Visit Diagnoses Diagnosis Fibromyalgia Mylagia and myositis, unspecified Acquired hypothyroidism Unspecified hypothyroidism documented in this encounter Advance Directives * Full Code (Latest Code Status on File) Date Activated Date Inactivated Comments 05/04/2012 5:01 PM 05/05/2012 1:46 PM This order reflects the patients wishes and were consensually agreed upon. Question Answer Comments Discussion of Advance Directives occurred with: Not Discussed Care Teams Sofa Inspector Relationship Specialty Start Date End Date Rheel, Raul N, PA-C [address] [place] [address] [place] [address] PCP - General Physician Pharmacist Aide 05/08/20 documented as of this encounter
--- OUTSIDE RECORDS SUMMARY | 2024-03-16 06:24 | External Medical Summary | Summary of Care ---
Author Name Unknown Organization [facility] Address [address] [place] [address] Phone [phone] Care Team Providers Care Irrigationist Name Role Phone Raul Contreras PA-C Primary Care Provider +1- [phone] Reason for Visit * Reason Comments eRx-Medication Refill Encounter Details Date Type Department Care Team (Late st Contact Info) Description 03/08/2024 Refill [place] [address] [address] [place] [address] Raul Contreras PA-C [facility] [place] [address] Dyslipidemia, goal LDL below 100 Allergies Active Allergy Reactions Criticality Noted Date Comments Cephalosporins 06/05/2001 rash to Keflex Lisinopril Cough 10/31/2012 Sulfa Antibiotics 06/05/2001 anxieties Vancomycin 06/15/2005 Severe i tching documented as of this encounter (statuses as of 03/09/2024) Medications Medication Sig Dispensed Refills Start Date [...] evening meals. 360 Tablet 3 4 Active Vitamin D3 1000 UNIT Oral [...] other meds 90 Tablet 2 4 Active Atorvastatin Calcium 20 MG Oral Tablet (Lipitor)Indication s:Dyslipidemia, goal LDL below 100 TAKE ONE TABLET BY MOUTH ONCE DAILY 90 Tablet 1 4 Active Atorvastatin Calcium 20 MG Oral Tablet (Lipitor)Indication s:Dyslipidemia, goal LDL below 100 TAKE ONE TABLET BY MOUTH ONCE DAILY 90 Tablet 1 4 03/09/20 24 Discontinued documented as of this encounter (statuses as of 03/09/2024) Active Problems Problem Noted Date Diagnosed Date [...] as of this encounter (statuses as of 03/09/2024) Resolved Problems Problem Noted Date Diagnosed Date Resolved Date Elevated liver enzymes 06/21/201703/02 Hyperlipidemia 07/30/2015 11/04/2015 Prolonged QT interval 06/16/20152019 HTN, goal below 140/80 06/16/201507/29 History of colon polyps 01/23/201402/13 History of diverticulosis 01/23/2014 Hypertrophy of breast 06/28/20122017 Menopause 07/03/2011 06/21/2017 Overview: By hormones 06/27 Asthma, in remission 11/06/2009 016 Overview: Per Asthma Taxonomy, Queta chinchillan Obesity, Class II, BMI 35-39 .9, isolated [...] as of this encounter (statuses as of 03/09/2024) Immunizations Name Administration Dates Next Due COVID-19 mRNA, LNP-s, No Pre serve, 2-Dose Series ([employer]) 12/25/2020,12/04/2020 H1N1 2009 Influenza, IM 07/10/2009 Pneumococcal [...] encounter Miscellaneous Notes * Telephone Encounter - Maribell Thomson RPh - 03/09/2024 8:40 PM EDTSigned Prescriptions: Disp Refills Atorvastatin Calcium 20 MG Oral Tablet (Li*90 Tab*1 Sig: TAKE ONE TABLET BY MOUTH ONCE DAILYAuthorizing Provider: RAUL CONTRERAS User: MARIBELL THOMSON------- documented in this encounter Plan of Treatment Upcoming Encounters Date Type Department Care Team (Late st Contact Info) Description 04/13/2024 2:00 PM EST Appointment Radiology, [address] [place] [phone] 08/17/2024 2:20 PM EDT Office Visit Family [facility] [address] [place] [phone] Raul Contreras PA-C [address] [place] [address] [place] [address] 01/21/2025 2:45 PM EDT Office Visit Ophthalmology, [address] [place] [address] Ever Valle MD [address] [facility] [place] [address] Scheduled Procedures Name Priority Associated Diagnoses Date/Ti [...] as of this encounter Visit Diagnoses Diagnosis Dyslipidemia, goal LDL below 100 Other and unspecified hyperlipidemia documented in this encounter Advance Directives * Full Code (Latest Code Status on File) Date Activated Date Inactivated Comments 05/04/2012 5:01 PM 05/05/2012 1:46 PM This order reflects the patients wishes and were consensually agreed upon. Question Answer Comments Discussion of Advance Directives occurred with: Not Discussed Care Teams Irrigationist Relationship Specialty Start Date End Date Raul Contreras PA-C [address] [facility] [address] [place] [address] PCP - General Physician [employer] 05/08/20 documented as of this encounter
--- OUTSIDE RECORDS SUMMARY | 2024-03-16 06:24 | External Medical Summary ---
Author Name Unknown Address Unknown Organization K01:LABORATORY [address] [facility] [address] Laboratory Report Ordering Provider Test Date Status ABIMAEL CARTER 02/17/2024 15:22:00 Final Observation Date Value Abnormality Reference (Units ) Status Human papilloma virus E6+E7 mRNA [Presence] in Cervix by ANIL with probe detection 02/17/2024 15:22:00 Negative Not Applicable Final No high/intermediate-risk [place] man Papillomavirus (HPV E6/E7 messenger RNA) detected by nucleic acid amplification.

This assay looks for high/intermediate risk Human Papillomavirus (HPV E6/E7 messenger RNA) by nucleic acid amplification. This assay includes the qualitative detection of HPV types 16,18,31,33,35,39,45,51,52,56,58,59,66 and 68 from cervical specimens.
This assay has been FDA cleared for Thin prep collection vials.
This assay has not been approved for use as a primary screening test for HPV and should be tested in conjunction with a PAP screen.
If collected utilizing a Surepath vial, the collection and specimen preparation of this test was developed, and its performance characteristics determined by [employer]. It has not been cleared or approved by the U.S. Food and Drug Administration (FDA). The FDA has determined that such clearance or approval is not necessary.
This assay has been performed at [facility], [address] [place] [address], [place]. [address]. Performing Location LABORATORY [address] [address]
[2024-03-16] MEDS ORDERED: BUPIVACAINE 0.5 % 5 MG/1 ML PF 10ML VIAL ONE (06:30)
--- NOTE | 2024-03-16 06:38 | History & Physical Bridge Note ---
Date of Service March 16, 2024 History & Physical Bridge Note I have examined the patient, reviewed the History & Physical and in the interval since the performance of the History & Physical I have noted the following changes of clinical significance: no changes noted
[2024-03-16] MEDS: ACETAMINOPHEN 500 MG TAB PO SCH ×2 (06:52→13:57)
[2024-03-16] MEDS: LR 60ML/HR IV SCH (06:52)
[2024-03-16] MEDS: CeleBREX 200 MG CAP PO SCH (06:52)
[2024-03-16] MEDS: FAMOTIDINE 20 MG TAB PO SCH (06:52)
[2024-03-16] MEDS: METOCLOPRAMIDE HCL 10 MG TABLET PO SCH (06:52)
[2024-03-16] MEDS ORDERED: MIDAZOLAM HCL 1 MG/ML 2ML VIAL ONE (08:11)
[2024-03-16] MEDS ORDERED: fentaNYL citrate PF 100 MCG/2 ML VIAL ONE (08:11)
[2024-03-16] MEDS: LR 500ML BOLUS, THEN 15ML/HR IV SCH (08:15)
[2024-03-16] MEDS ORDERED: ATROPINE SULFATE 0.1 MG/ML 10ML SYR IV PRN (08:31)
[2024-03-16] MEDS ORDERED: HYDROmorphone INJ 1 MG/ML SYRINGE IV PRN (08:31)
[2024-03-16] MEDS ORDERED: PROMETHAZINE HCL 6.25 MG in SODIUM CHLORIDE 0.9% 50 ML IV PRN (08:31)
[2024-03-16] MEDS ORDERED: ePHEDrine sulfate 50 MG/ML AMP IV PRN (08:31)
[2024-03-16] MEDS: TRANEXAMIC ACID 1,000 MG **IV Pre-op IV SCH (08:39)
[2024-03-16] MEDS ORDERED: LIDOCAINE 2% 2 ML VIAL/AMP(20MG/ML) INFIL ONE (09:13)
[2024-03-16] MEDS ORDERED: PROPOFOL IV EMULSION 10 MG/ML 20 ML VIAL IV ONE ×2 (09:13→10:07)
[2024-03-16] MEDS: ceFAZolin 2000MG 2,000 MG/15 ML SYR IV SCH (09:26)
[2024-03-16] MEDS ORDERED: PHENYLEPHRINE 100MCG/ML 5ML SYR ONE (09:50)
[2024-03-16] MEDS: BUPIVACAINE/EPINEPHRINE 0.5% MPF 1:200,000 30 ML VIAL ONE (10:25)
--- NOTE | 2024-03-16 10:56 | Operative Report ---
PG Post Operative Report Pre & Post Diagnosis Operation Date: 03/16/24 08:50 Pre-Op Diagnosis: Arthritis Left Hip Post-Op Diagnosis: Arthritis Left Hip I identified the patient and participated in the time-out.: Yes Procedure Operation Date: 03/16/24 08:50 Actual Procedures p Left Total Hip Arthroplasty(Left) - Jad Hinton MD Surgeon Jad Hinton MD Wood Technologist Sage Starks PA-C Estimated Blood Loss 100 Findings Consistent with Post-Op Diagnosis Specimens Left femoral head sent for pathology. Anesthesia Type Spinal MAC Complications none Disposition Accompanied Patient To Recovery: No Indications Patient is a 64-year-old female whose had a 7-year history of increasing bilateral hip pain and discomfort has gotten worse over time. She had a right hip replaced about a year and a half ago and is done well from this. She continues to bothered by progressive left hip. She failed conservative measures. She elected proceed with a left total hip arthroplasty. Description of Procedure Operative implants consist of: 1 Biomet G7 size 50 mm acetabular shell. 2. 6.5 cancellous acetabular screws 1 of 35 mm length and 1 of 20 mm length. 3. [place] hole fiber optics supervisor. 4. Highly cross-linked polyethylene liner with a 50 mm outer diam and 36 mm inner diameter and the huffman placed inferior and posterior. 5. DePuy Corail size 12 KLA femoral stem. 6. +5/36 mm ceramic articular ball. The patient was taken the op room, identified, placed on the operating table in the supine position. All conductors were appropriately padded. IV antibiotics tried by anesthesia team. A spinal anesthetic and been implemented holding area. Pardo catheter was placed in sterile fashion. The patient was then placed in the right lateral decubitus position. An axillary roll was placed. A Stulberg position was used for positioning. The left hip and leg were then prepped and draped in usual sterile fashion. A posterior lateral approach to the left hip was then performed to a curvilinear incision centered over the greater trochanter. Sharp dissection was Through subcutaneous tissue down to of the IT band gluteal fascia. The IT band gluteal fascia was then incised longitudinally in line with skin incision. The underlying greater bursa was excised. The piriformis and external rotators along with the posterior hip joint capsule were then released from the posterior aspect the hip as a single layer. Great care was taken throughout the procedure protect the sciatic nerve at all times. The hip was then internally rotated and dislocated. A femoral neck osteotomy cut was made with a Final Cut 10 mm above lesser trochanter. Femoral head was removed and sent for pathology. The femur was retracted anteriorly. Attention drawn the acetabulum. The acetabular labrum was excised. The pulmonary fat was excised. Sequential reaming of the acetabulum was then performed performed beginning with size 43 and progressing up to a 49. I reamed a little bit with a 50 reamer and then placed a 50 mm Biomet acetabular shell in about 40 degrees lateral opening and 20 degrees of anteversion. It was fixed with two 6.5 screws. A trial liner was placed. Attention drawn the femur. The proximal femur was entered with a [employer] cutter followed by canal finder. Then broached beginning the size 8 and progressing up to a 12. Got excellent fitted to 12. I did not think I could safely put in a larger implant. We trialed the hip and the +5 articular ball seen recreate soft tissue tension appropriately. It also recreated leg lengths equal. It was fully stable in full extension and external rotation and flexion to 90 degrees internal Tatian over [address] We elect to place these implants. All trial implants were removed. An apex hole fiber optics supervisor was placed. Highly cross-linked polyethylene liner was placed. I did place a liner with a huffman in order to maximize her stability in flexion. The huffman was placed inferior and posterior. A size 12 KLA femoral stem was placed. A +5/36 mm ceramic articular ball was placed and the hip was located. Once again found to be stable. Attention was then drawn to closing. Wounds irrigated coconuts of pulsatile lavage solution. We did inject locally with 60 cc of half percent Marcaine with epinephrine. The posterior capsule and external rotators were then repaired through drill holes in the posterior trochanter with #2 Tycron suture. The IT band gluteal fascia then closed with #1 PDS suture in a running fashion. The subcutaneous tissues then closed with 2 layers with a deep layer #1 Vicryl suture and subcutaneous tissues with 2-0 Dexon suture in a buried interrupted fashion. Skin was closed skin zaynab. Leg was then cleaned and dried and sterile dressing with Xeroform, 4 fours, sterile ABD pad and foam tape was applied. Patient then transferred to the recovery room in stable condition. Patient tolerated procedure well and there were no complications. Sage Starks, my physician cafeteria assistant, was present for the entire procedure. His assistance was essential and required for appropriate patient positioning, prepping and draping, surgical exposure, performing the technical details of the operation, placement the implants, closure of the wound, and placement of the sterile bandage. I attest to the content of the Intraoperative Record and any orders documented therein. Any exceptions are noted below.
[2024-03-16] MEDS ORDERED: DEXTROSE 50% 50 ML SYRINGE IV PRN (11:53)
[2024-03-16] MEDS ORDERED: METOCLOPRAMIDE HCL INJ 5 MG/ML 2 ML VIAL IV PRN (11:53)
[2024-03-16] MEDS ORDERED: MAGNESIUM HYDROXIDE SUSP 30 ML UDC PO PRN (11:53)
[2024-03-16] MEDS ORDERED: ALUMINUM/MAGNESIUM SUSP 30 ML UDC PO PRN (11:53)
[2024-03-16] MEDS ORDERED: GLUCAGON FOR INJ 1 MG VIAL SQ PRN (11:53)
[2024-03-16] MEDS ORDERED: GLUCOSE 40% GEL 15 GM TUBE PO PRN (11:53)
[2024-03-16] MEDS ORDERED: PHARMACY GLYCEMIC MGMT CONSULT PRN (11:53)
[2024-03-16] MEDS ORDERED: NON-FORMULARY MEDICATION (Semaglutide [Ozempic] 1 mg/dose (4 mg/3 mL) Pen Injector) SQ SCH (11:53)
[2024-03-16] MEDS ORDERED: HYDROmorphone INJ 0.5 MG/0.5 ML SYR IV PRN (11:53)
[2024-03-16] MEDS ORDERED: bisacodyL 10 MG SUPP PR PRN (11:53)
[2024-03-16] MEDS ORDERED: CARBOHYDRATES FOR HYPOGLYCEMIA PO PRN (11:53)
[2024-03-16] MEDS ORDERED: NALOXONE HCL 0.4 MG/1 ML VIAL/CARP IV PRN (11:53)
[2024-03-16] MEDS ORDERED: GLUCOSE 10 TAB/TUBE PO PRN (11:53)
[2024-03-16] MEDS ORDERED: ONDANSETRON INJ 2 MG/ML 2 ML VIAL IV PRN (11:53)
[2024-03-16] MEDS: Nursing to Pharmacy Communication SCH (12:36)
--- NOTE | 2024-03-16 12:41 | XRay Report ---
XR hip LT min 2V HISTORY: 64 years-old Female post-op left hip arthroplasty COMPARISON: 02/16/2024 TECHNIQUE: 2 views of the left hip FINDINGS: Left hip arthroplasty demonstrates satisfactory alignment. Lateral skin zaynab are present along wit h expected postoperative soft tissue swelling with deep tissue air. No acute fracture or malalignment . IMPRESSION: Left hip arthroplasty with expected postoperative changes. ACT 112: Negative or not required by law. The above report was generated using voice recognition software. It may contain grammatical, syntax o r spelling errors. Electronically signed by: Sven Zheng M.D. 03/16/2024 12:39 PM
--- NOTE | 2024-03-16 13:29 | Pharmacy Report ---
Pharmacy Glycemic Short Note 2 - Date of Service March 16, 2024 - Glycemic Short BSG Results (Last 24 hours): 03/16/24 03/16/24 07:09 10:52 POC Glucose 124 H 168 H OUTPATIENT ANTIDIABETIC REGIMEN: * Patient takes metformin and Ozempic * Pt's A1c was 7.2% on 02/16/24 ASSESSMENT: 03/16: * Jaymie Francisco is a 64 yo F who is POD0 L.AMANDA. Pt's PMH includes HTN, OA, hypothyroidism and T2DM for which pharmacy was consulted for glycemic management. * Pt's preop BSG was 124, rising to 168 postop. No preop steroids were given but pt has 1 dose of IV dexamethasone 10 mg ordered tomorrow. * Will order Lantus 20 units x1 for tomorrow morning to coincide w/pt's IV dexamethasone * A NovoLog stress level of 2 will be utilized as well. PLAN FOR INPATIENT GLYCEMIC CONTROL: * Hold outpatient oral diabetes medications * Basal insulin * Lantus 20 units SQ x1 dose tomorrow morning with pt's dexamethasone * Bolus insulin * NovoLog per scale ACHS or Q6hrs while NPO * Goal Range: Low 110 mg/dL - High 140 mg/dL * Correction Factor: 30 mg/dL/unit * Nutritional / Prandial insulin per carb ratio of 1 unit per 10 grams CHO consumed
[2024-03-16] MEDS: KETOROLAC TROMETHAMINE 15 MG/ML VIAL IV SCH (13:57)
[2024-03-16] MEDS: INSULIN ASPART PER UNIT CHARGE SC SCH (13:57)
--- NOTE | 2024-03-16 14:58 | Anesthesiology Progress Note ---
Date of Service March 16, 2024 Anesthesia Post Procedure Vital Signs Vital Signs: Temp Pulse Pulse Resp BP Pulse Ox O2 Del Method 03/16/24 13:50 95 H 16 123/74 98 Room Air 03/16/24 12:32 36.4 C L 92 H 16 114/73 98 Room Air 03/16/24 11:57 36.4 C L 102 H 16 116/70 98 Room Air 03/16/24 11:35 101 H 16 115/69 97 Room Air 03/16/24 11:25 36.1 C L 101 H 16 121/69 97 Room Air 03/16/24 11:15 101 H 16 119/69 97 Room Air 03/16/24 11:05 104 H 16 120/67 95 Room Air 03/16/24 10:55 107 H 16 120/69 97 Room Air 03/16/24 10:46 36.0 C L 110 H 16 112/65 97 Room Air 03/16/24 06:42 36.7 C 89 16 161/89 H 98 Room Air Pain Intensity Left Hip: Pain Intensity: 2 Transfer of Care Handoff Completed per policy Notes Mental Status: alert / awake / arousable and participated in evaluation Nausea / Vomiting: adequately controlled Pain: adequately controlled Airway Patency, RR, SpO2: stable & adequate BP & HR: stable & adequate Hydration State: stable & adequate Neuraxial Anesthesia: was administered and sensory block is resolving Anesthetic Complications: no major complications apparent and Pt Satisfied with anesthetic care
[2024-03-16] MEDS: ASCORBIC ACID 500 MG TAB PO SCH (17:30)
[2024-03-16] MEDS: ceFAZolin 1000MG 1,000 MG/7.5 ML SYR IV SCH (17:31)
[2024-03-16] MEDS: TRANEXAMIC ACID / 0.7% NACL 1,000 MG/100 ML BAG IV SCH (17:31)
[2024-03-16] MEDS: traMADol HCL 50 MG TABLET PO PRN (20:08)
[2024-03-16] MEDS: SENNA 8.6 MG TAB PO SCH (20:09)
[2024-03-16] MEDS: DOCUSATE SODIUM 100 MG CAP PO SCH (20:09)
[2024-03-16] MEDS: ASPIRIN 81 MG ECTAB PO SCH (20:10)
[2024-03-16] MEDS: VALSARTAN 80 MG TAB PO SCH (20:10)
[2024-03-16] MEDS: ATORVASTATIN 20 MG TAB PO SCH (20:10)
[2024-03-16] MEDS ORDERED: SENNA 8.6 MG TAB PO SCH (21:00)
[2024-03-17 03:14] VITALS: O2SAT 96
[2024-03-17] MEDS: LEVOTHYROXINE SODIUM 100 MCG TABLET PO SCH (06:02)
[2024-03-17 06:38] LABS: Basophils # (auto) 0.01 K/uL (0.00-0.20); Basophils % (auto) 0.2 %; Eosinophils # (auto) 0.15 K/uL (0.00-0.50); Eosinophils % (auto) 2.9 %; Hematocrit (blood only) 32.7 % (37.0-47.0); Hemoglobin 11.2 g/dl (12.0-16.0); Immature Granulocytes # (auto) 0.01 K/uL (0.01-0.20); Immature Granulocytes % (auto) 0.2 %; Lymphocytes # (auto) 1.13 K/uL (1.20-3.40); Lymphocytes % (auto) 21.5 %; Mean Corpuscular Hemoglobin 29.9 pg (25.0-34.0); Mean Corpuscular Hgb Conc 34.3 g/dL (32.0-36.0); Mean Corpuscular Volume 87.2 fL (80.0-100.0); Mean Platelet Volume 9.7 fL (9.4-12.4); Monocytes # (auto) 0.52 K/uL (0.11-0.59); Monocytes % (auto) 9.9 %; Neutrophils # (auto) 3.44 K/uL (1.40-6.50); Neutrophils % (auto) 65.3 %; Platelet Count 129 K/uL (130-400); RDW Coefficient of Variation 12.1 % (11.5-14.5); RDW Standard Deviation 38.6 fL (36.4-46.3); Red Blood Count 3.75 M/uL (4.20-5.40); White Blood Count 5.26 K/ul (4.8-10.8)
[2024-03-17 06:56] LABS: BUN Creatinine Ratio 21.2 (10-20); Calcium 8.8 mg/dl (8.6-10.3); Creatinine Clr Calc Pharmacy 100.4 ml/min; Potassium 4.3 mmol/L (3.5-5.1)
--- NOTE | 2024-03-17 06:57 | Orthopedic Progress Note ---
Date of Service March 17, 2024 Assessment & Plan (1) Status post left hip replacement: Plan: 64-year-old female postop day 1 from left hip replacement doing pretty well. Pains controlled. Hips located. She is neurologically intact. Plan: 1. DVT prophylaxis including thigh-high teds, SCDs, aspirin twice a day. 2. PT/OT. Weight-bear as tolerated. Left total hip protocol. 3. Pain control. Doing okay with current pain regimen. 4. Disposition. Plan to discharge to home with some home health if she does okay in therapy today. Admission and Anticipated Discharge Date Admission Date: March 16, 2024 Subjective 64-year-old female postop day 1 from left hip replacement. She is doing okay this morning. Have a little bit more discomfort overnight. No chest pain or shortness of breath. Not feeling dizzy or lightheaded. Physical Exam Physical Exam: Physical exam shows a pleasant middle-aged female. She is lying bed looks pretty comfortable this morning. Examination of the left hip and leg reveals leg lengths are equal. Dressings clean dry and intact. Thigh is soft and supple. She is neurologically intact. Respiratory: normal respiratory effort, lungs clear to auscultation Cardiovascular: RRR, no murmur, no edema Gastrointestinal (Abdomen): normal bowel sounds, soft, nontender, no hepatosplenomegaly Results & Data Vital Signs (Past 12 Hours) Vital Signs Temp Pulse Resp BP Pulse Ox O2 Del Method 03/17/24 03:14 36.6 C 83 16 113/74 96 Room Air 03/16/24 22:58 37.1 C 93 H 18 115/76 97 Room Air 03/16/24 19:51 37.0 C 115 H 18 128/73 96 Room Air Laboratory Results Hemoglobin is 11.2. Hematocrit 37.2. Electrolytes are pending.
[2024-03-17 07:49] VITALS: BP 125/75; PULSE 94; RESP 18; TEMP 98.4
[2024-03-17] MEDS: DULoxetine HCL 30 MG CAP PO SCH (08:46)
[2024-03-17] MEDS: dexAMETHasone 10 MG in SYRINGE 0 ML IV SCH (08:46)
[2024-03-17] MEDS: CHOLECALCIFEROL 25 MCG (1000 UNITS) TAB PO SCH (08:46)
[2024-03-17] MEDS: MULTIVITAMIN TAB PO SCH (08:47)
[2024-03-17] MEDS: METOPROLOL SUCC 25MG EXT REL TAB PO SCH (08:47)
[2024-03-17] MEDS: LANTUS PER UNIT CHARGE SC ONE (08:56)
[2024-03-17] MEDS ORDERED: NON-FORMULARY MEDICATION (Amino Acids [Amino Acid] Capsule) PO SCH (09:00)
--- NOTE | 2024-03-21 14:43 | Discharge Summary ---
Date of Service March 21, 2024 Principal Diagnosis Same as "Discharge Diagnosis" noted below under Discharge Instructions. Discharge Data Procedures Performed Operation Date: 03/16/24 08:50 Actual Procedures p Left Total Hip Arthroplasty(Left) - Jad Hinton MD Hospital Course (1) Status post left hip replacement: This is a 64 year old patient admitted on 03/16/24 and underwent total hip arthroplasty. She tolerated the procedure well and there were no complications. Transferred to the PACU post op and later to the orthopedic floor for further care. She was given ancef for antibiotic prophylaxis. She was also given MAURICE stockings, SCDs, and aspirin for DVT prophylaxis. Hemoglobin, hematocrit, and vital signs were monitored during her hospital stay and remained stable. Did not require any blood transfusions. There were no complications during her hospital stay. By post op day #1 the patient was tolerating a diabetic diet, pain was reasonably controlled with oral pain medicine, and she was participating in physical therapy. On post op day #1 the patient was discharged home and set up with home health care. She was given printed discharge instructions including prescriptions for extra strength tylenol, aspirin, ketorolac, zofran, senokot, and tramadol. Continue hip precautions. Continue physical therapy, weight bearing as tolerated. Continue MAURICE stockings. Follow up approximately 2 weeks post op or sooner if there are problems or concerns. PG Care Time/CCT Total # of Minutes Spent Total Time Spent with Patient: : Discharge Plan Discharge Items Patient Disposition: Home - Home Health Services Reason For Visit: Arthritis Left Hip Discharge Diagnosis: Left Hip Replacement Activity: Per Instructions section Activity Comment: Follow/Obey hip precautions at all times. Weightbearing: Full weightbearing Weightbearing Comment: Weightbear as tolerated obeying hip precautions at all times. Non-emergency contact: Surgeon Call non-emergency contact if: you have any medication questions Follow-up/Referrals: Azul Contreras PA-C [Primary Care Provider] - Diet: Carb Consistent or DM2 Addtl Attending Provider Instructions: ACTIVITY RECOMMENDATIONS: Diet: * You may resume previous diet. Physical Therapy: * Aggressive physical therapy is not usually needed. You will learn to take care of yourself safely and walk. * Follow the "Hip Precautions Instructions." * In some cases, the social sciences professor at the hospital will arrange to have a therapist come to your house for the first couple of weeks to help you learn these skills. * You need to practice on your own or with the help of a family member as needed. * When you learn these skills, most of the therapy can be done on your own. Home Exercise: * You were shown a series of exercises in the hospital. Do these exercises three to four times each day including the exercises you were shown in physical therapy. Walking: * Get up and walk several times each day. For the first four weeks, try not to stand or walk for more than one hour at a time. If you do stand or walk for more than one hour, you will not hurt anything, but your leg will likely swell. * As you feel comfortable, you may change from the walker or crutches to a cane and then to independent walking. MEDICATIONS: New Medicine: * You will likely be taking one or more of these medicines: 1. Tramadol - Take, as directed, when you need it, every six hours to control your pain. 2. Aspirin - Thins your blood to lessen the chance of forming a blood clot. * The most common side effects of pain medicine and iron are nausea and constipation. If nausea or constipation is too much of a problem or if you have any questions about your new medicines or doses, call [facility] at . We will try to help you manage these issues. "VERY IMPORTANT TO READ AND REVIEW" Pain: * The immediate post-operative period after hip replacement surgery is often quite painful. * You are given a prescription for pain medicine. You should take it, as directed, when you need it, especially before physical therapy and before going to bed. Pain that interferes with sleep is very common and can last several months. * You will likely need pain medicine for the first two to four weeks. It will not stop all of the pain. The pain will lessen and as you feel better, you may change to milder pain medicine such as Tylenol. * The most common side effects of pain medicine are nausea and constipation, so don't take more than you need. SPECIAL CARE INSTRUCTIONS: TEDs/Elastic Stockings: * The white elastic stockings help limit swelling and prevent blood clots from forming in your legs. The more you wear them, the more they work. * Wear them for six weeks. Incision Site Care: * Remove dressing postoperative day 2 and then shower. Keep direct shower pressure off the incision site. * After showering, cover zaynab with dry gauze and change daily or more frequently if the dressing is getting saturated with drainage. * May completely stop using bandage if wound is dry and no drainage * Zaynab are removed between 2 and 3 weeks post-op. If your follow-up appointment is made before 2 weeks, please have your appointment re- scheduled. It is too early to remove the zaynab. Prevention of Infection: * Take antibiotics one hour before any dental cleaning, dental work, urological procedure, gastrointestinal procedure or any invasive surgery in order to prevent your new joint from getting infected. * You may get the antibiotics from the doctor performing the procedure or you may call our office at before and we will call in a prescription to the pharmacy of your choice. Things to Watch For: * Drainage from the incision site that occurs more than one week after your surgery. * Severely increased leg pain or swelling. * Increased redness at the incision site. * Fever above 102 degrees Fahrenheit. * Unusual chest pain or shortness of breath. * Unusual pain or burning with urination. Call [facility] at with any of the above problems or if you have any questions about your medicines or recovery. FOLLOW UP VISIT: Make an appointment to see your doctor for approximately two weeks after surgery for a progress check and staple removal by calling the office at . Pending Studies at Discharge: No Stand-Alone Forms: My [facility], Smoking Cessation Medications and DC Order Prescriptions: Continued amoxicillin 500 mg tablet 2,000 mg PO ONCE Qty: 4 3RF Rx Instructions: 4 tabs 1 hour prior to procedure tramadol 50 mg tablet 50 - 100 mg PO Q6 PRN (Reason: pain) Qty: 40 0RF Rx Instructions: Take as needed for pain ondansetron 4 mg tablet,disintegrating 4 mg PO Q8 PRN (Reason: nausea) Qty: 20 1RF Rx Instructions: Take as needed for nausea ketorolac 10 mg tablet 10 mg PO Q6 5 Days Qty: 20 0RF Rx Instructions: Take 4 times per day with food for 5 days to lessen pain and swelling. sennosides [Senokot] 8.6 mg tablet 8.6 mg PO BID 14 Days Qty: 28 0RF Rx Instructions: Take two times a day to prevent/treat constipation acetaminophen [Tylenol Extra Strength] 500 mg tablet 1,000 mg PO TID 30 Days Qty: 180 0RF Rx Instructions: Take 3 times per day to lessen pain. aspirin [Stewart Low Dose Aspirin] 81 mg tablet,delayed release (DR/EC) 81 mg PO BID 45 Days Qty: 90 0RF Rx Instructions: Take to prevent blood clots. (DME) Wheeled Walker Misc See Rx Instructions .MEDSUPPLY Qty: 1 0RF Rx Instructions: As directed atorvastatin 20 mg Tablet 20 mg PO HS levothyroxine 100 mcg Tablet 100 mcg PO QAM metformin 1,000 mg Tablet 1,000 mg PO BID metoprolol succinate 25 mg Tablet Extended Release 24 Hr 25 mg PO QAM valsartan 40 mg Tablet 40 mg PO BID duloxetine [Cymbalta] 30 mg Capsule,Delayed Release(Dr/Ec) 30 mg PO QAM cholecalciferol (vitamin D3) [Vitamin D3] 25 mcg (1,000 unit) Tablet 1,000 unit PO QAM Amino Acid Capsule 1 cap PO DAILY Patient Comments: plans to restart before surgery as directed by Dr. Hinton Ozemprichard 1 mg/dose (4 mg/3 mL) Pen Injector 1 mg SUBCUT WK Patient Comments: sundays Discontinued aspirin [Stewart Low Dose Aspirin] 81 mg tablet,delayed release (DR/EC) 81 mg PO QAM acetaminophen [Tylenol Extra Strength] 500 mg Capsule 1,000 mg PO Q6H PRN (Reason: Pain) Admission Data Admit Date/Time: 03/16/24 10:48 Attending Provider: Jad Hinton Admit Provider: Jad Hinton Primary Care Provider: Azul Contreras Other Providers: [facility], [facility],Home Health Other Interventions: Discharge Summary Assessment (RN) Last Done: 03/17/24 11:39
== END 2024-03-17 12:07 | disposition home health service (06) ==
LOC: 3E 06:17 → ASU 06:17